=== PATIENT | female | born 1995 | race Caucasian/White ===

== ENCOUNTER 2022-09-26 09:30 | Outpatient (OUT) | payer OTHER, SELFPAY ==
[2022-09-26 11:24] LABS: HCG Quantitative <1 mIU/mL
== END 2022-09-26 09:31 | disposition home or self-care (01) ==
LOC: LAB 09:39
PROVIDERS: Visit Provider Physician Assistant
DX: N92.6 Irregular menstruation, unspecified (principal)
CPT/HCPCS: 36415; 84702

== ENCOUNTER 2022-09-27 08:57 | Outpatient (OUT) | payer OTHER, SELFPAY ==
[2022-09-27 09:42] LABS: HCG Quantitative <1 mIU/mL
== END 2022-09-27 08:58 | disposition home or self-care (01) ==
LOC: LAB 08:57
PROVIDERS: Visit Provider Obstetrics & Gynecology
DX: N92.6 Irregular menstruation, unspecified (principal)
CPT/HCPCS: 36415; 84702

== ENCOUNTER 2023-06-12 15:46 | Outpatient (RCR) | payer SELFPAY ==
[2023-06-12 17:25] LABS: HCG Quantitative <1 mIU/mL
== END 2023-07-05 08:45 | disposition home or self-care (01) ==
LOC: LAB 15:46
PROVIDERS: Visit Provider Obstetrics & Gynecology
DX: N97.0 Female infertility associated with anovulation (principal)
CPT/HCPCS: 36415; 84702

== ENCOUNTER 2023-06-14 10:30 | Outpatient (OUT) | payer SELFPAY ==
[2023-06-14 11:09] LABS: HCG Quantitative <1 mIU/mL
== END 2023-06-14 10:31 | disposition home or self-care (01) ==
LOC: LAB 10:31
PROVIDERS: Visit Provider Obstetrics & Gynecology
DX: N97.0 Female infertility associated with anovulation (principal)
CPT/HCPCS: 36415; 84702

== ENCOUNTER 2023-06-17 16:55 | Emergency (ER) | payer SELFPAY ==
[2023-06-17 17:08] VITALS: BP 141/85; PULSE 74; RESP 18; TEMP 36.8; O2SAT 97; BMI 25.7
--- OUTSIDE RECORDS SUMMARY | 2023-06-17 17:31 | XMS_ITS | CCD ---
Author Name Unknown Address [address] [place] [id number] Organization [facility] Care Team Providers Care Amusement [employer] Entertainer Name Role Phone TOAN ARTIS I Attending Unavailable Telma Rodriguez Primary Care Unavailable CARYN, DR ADAM Attending Unavailable [facility], DR NIEVES Primary Care Unavailable CARYN, DR ADAM Admitting Unavailable CARYN, DR ADAM Consulting Unavailable [facility], DR NIEV[facility] Primary Care Unavailable CARYN, DR ADAM Admitting Unavailable CARYN, DR ADAM Attending Unavailable Jair ACOSTA Attending Unavailable Jair ACOSTA Admitting Unavailable Fernanda Pantoja Unavailable Allergies Allergy Classification Reported Allergen(s) Allergy Type Date of Onset Reaction(s) Facility (1 source) No Known Medication Allergies; Translations: [No Known Medication Allergies] Propensity to adverse reactions (disorder) [facility] Repository Medications Current Medications Medication Drug Class(es) Dates Sig (Normalized) Sig (Original) fluticasone propionate 0.05 mg/actuat metered dose nasal spray (1 source) Corticosteroid Start: 3 take 1 spray(s) nasal route once daily Fluticasone Propionate 50 MCG/ACT 1 spray in each nostril Nasally Once a day for 30 day(s) Jun, Active methylPREDNISolone 4 mg oral tablet (1 source) Corticosteroid Start: 3 methylPREDNISolone 4 MG as directed Orally Once a day for 6 days Jun, Active Problems Active Problems Problem Classification Problem Date Documented Date Episodic/Chronic External cause codes: Natural/environment (1 source) Bitten or stung by nonvenomous insect and other nonvenomous arthropods, initial encounter; Translations: [Bit/stung by nonvenom insect oth nonvenom arthropods, init] Onset: 12-05-2017 Immunizations and screening for infectious disease (1 source) Encounter for screening for human papillomavirus (HPV); Translations: [ENC SCREENING HUMAN PAPILLOMAVIRUS] Onset: 11-19-2021 Episodic Other screening for suspected conditions (not mental disorders or infectious disease) (4 sources) Encounter for screening for malignant neoplasm of cervix; Translations: [ENC SCREENING MALIG NEOPLASM CERV] Onset: 11-18-2021 Episodic Other upper respiratory disease (1 source) Sinusitis; Translations: [Allergic rhinitis, unspecified] Chronic Other upper respiratory disease (1 source) Allergic rhinitis, unspecified Chronic Other upper respiratory infections (1 source) Acute pharyngitis, unspecified Episodic Skin and subcutaneous tissue infections (1 source) Periorbital cellulitis; Translations: [Periorbital cellulitis] Onset: 12-05-2017 Past or Other Problems Problem Classification Problem Date Documented Da te Episodic/Chronic Allergic reactions (1 source) Allergy, unspecified, initial encounter; Translations: [Allergy, unspecified, initial encounter] Onset: 12-05-2017 Episodic Other eye disorders (1 source) Edema of left lower eyelid; Translations: [Edema of left lower eyelid] Onset: 12-05-2017 Episodic Other eye disorders (1 source) Edema of left upper eyelid; Translations: [Edema of left upper eyelid] Onset: 12-05-2017 Episodic Other skin disorders (1 source) Rash and other nonspecific skin eruption; Translations: [Rash and other nonspecific skin eruption] Onset: 12-05-2017 Episodic Results Test Name Value Interpretation Reference Range Facility [facility] 06-16-2022 S. pyogenes Org specific cx Ql (Throat) Negative [facility] Other [facility] Other Operative Reporton 2 Operative Report SURGERY DATE: 01/19/2022 [employer]: LUDIVINA PREOPERATIVE DIAGNOSIS: Pelvic pain, suspected ectopic POSTOPERATIVE DIAGNOSIS: Pelvic pain, suspected ectopic , including right ectopic OPERATION: Diagnostic laparoscopy with right salpingectomy with evacuation of hemoperitoneum BLOOD LOSS: 5 mL with hemoperitoneum of 300 mL FINDINGS: Right ectopic with 300 mL hemoperitoneum, otherwise normal appearing ovaries, left tube and uterus SPECIMEN: Right tube ANESTHESIA: General PROCEDURE: The patient was taken back to the Operating Room where she was given general anesthesia without difficulty. She was prepped and draped in normal sterile fashion after being placed in dorsal lithotomy position. A wet sponge stick was placed into the patient's vagina. The attention was then turned to the patient's umbical area where a small infraumbilical incision was made. This was carried down to underlying rectus fascia using mesh retractors. The fascia was then identified and grasped with Dennis clamps. These Dennis clamps were then tented up. A knife was then used to excise the fascia. Two 0 Vicryl GI needles were placed on each side of the fascial opening laterally. The peritoneum was identified, entered bluntly and a 10 mm blunt port was then placed. Visualization of the pelvic cavity was then performed using the hysteroscope that was just placed through the port. Two additional right and left lateral 5 mm ports were then placed under direct visualization. The patient's abdomen was insufflated using approximately four liters of carbon dioxide gas. Normal appearing left tube and ovary as well as uterus and normal appearing right ovary were identified. The right ectopic was seen. This was then grasped with forceps and removed using a LigaSure which was transected and ligated. The ectopic was then removed from the patient's abdomen. The Andreea was used to remove approximately 300 mL of blood. The patient's abdomen was copiously irrigated and blood is then again removed. All instruments were removed from the patient's abdomen after the patient was de-insufflated of the carbon dioxide gas. The fascia was then closed using the 0 Vicryl on a GI needle. Then the patient's infraumbilical and left lateral skin incision was closed using 4-0 Vicryl subcuticularly. The patient tolerated the procedure well. Sponge, laparotomy and needle counts were correct x2. The patient taken to Recovery Room in stable condition. Ronald Angela Dictated: 01/26/2022 [id number] Transcribed: 01/27/2022 [facility] Comment on above: Result Comment: Elec tronically Signed By: Jair ACOSTA DO\.jay\Date and Time Signed: 03/02/22 16:01 EST Coding Summary.on 01-27-2022 Coding Summary. [id number] Gh 0bWw+PGhlYWQ+ZR5JNBTxG 42zpLKxfS7SA7gPOC4JIVI IVMAKHG6QXM7uiZT4YRnvB 2VybiAv FvagaCArVO70EFl3GJZ2iK yzDKbqoH7paFPiW1i2NzHs FT24xI75LOkqKTCnDzL4Ar ZpbjsgbWFy D2pmTzUtsFJyZxv+PHRhYm xlIHdpZHRoPScxMDAlJyBz mTexCG7nLn6uWDCkQVNewG xhcHNlOiBj q8efVPOgARrdBC0oeTcoO4 EviBQ3QFGgh4u2Hn64mLG+ MBQqDME4xSbeTZyhj756Nc Crw5spWGW3 yDVnQEkmSAJ7C03at5L3DM BvCCFrGVN7xGR0sR5fhJuk jiwzV6RbsOTlEnR8MPO9sP VqkX3woPuv eleflR5pUgi+D68BVF6SUW FASI4EIys2P0PuKneajBU+ LL32AVRySZ04xOHrfCOco8 lovEg3EkUm FCUqHGU7mTiyKDfun0PySP KlI64saWZki2F0YIHgfWom nIAhIpAeePI1uI6rRWzvup vgp0vtwtga Faasm8onzs35aM88V51dWT cqYZQjDIG1VTMtYPMhxBbt gi6yfY7uNs2+NUbqp8quz8 egcRn6DzAw OWQrcdBqkVubCMV0v3TrPy 84P5SjrCbzv5CrRfj5gr39 eQYoh1W4tCD2TZihAZRsjG 9xZTriHfV0 WTNvPcEvaM28iFSzFHpkKm 5yuJgcyRgfNM6dAQJiugdy FZSfzZ2zLSDrmHCiaBihNU 4wNTBpbjtm c055FxJxZRW9UUPocUAgY6 FibQ1xQjEuUEIuRHJlC8Xf gCCiIQgbP545DVymMuI6HJ LjbtAuY5Ce UVIzhGctYsS5x4U5Ix1Oi9 FyoktuEFM6TSbkRFLpNtN7 XxNsEdS3F0YfQro9MBTlgM kuLR9hX1Ad PXVclgafcbyghZK0ULJrEN IodJ71dPOfDEoaCr2yb6I3 w152QASeASYbpX56Cr1pqU ogMTBwdCBU pF0smgxnb7freljbUaYpCF NyWJu0UDi5IUFfpAqrLoKd NZQ7ArQ9KJI3qKSqhG0qvO dchtgewO8u Oyc+M76lbS0eLXX0JWJ6rx soWCYqiePrMF02IU98G6Wa PjwvdGFibGU+PGRpdiBzdH izWE6dYuQa n7kwp9PpKRjdI6NuLJBwDM zqZbr1MFAqMWA3xAL8kI6n ZXBcIKwba4L5lBB3Q9Ctms Rvpm4vl3ew JUXrSZxhG31axOUuz9P9BU ZerVZ2MNOtaEulUgLweD86 Oyc+MEXgfKwgj1SkXdsec0 kat5ehdWs6 WyMpFYOydxHihTffHLW9j6 RoUj61E65tZSxcGXIlTOSz HUWzVHAdzHoczv4hgT7cSs 8+PGNvbCB3 bHA6cH4dGHDkRxA3PLwmI5 51WdVjwDEoKirby0ttx6ok yHr0JmWzIKXbznBguFgbGA S5k1SeNd19 R52aNNlwWDUuNBUsEIOrVG EynAwxuh0qvS0qPh1+PC9j n3lxlb98vH00uPS+PHRkIH E1pFyyIHld ANYndO1mYLqyWiX2OBGoXf VcvS41bOPwWWrvRl2wnSbo jAzaNO7zORQqkwjeg189Gp Wxk9vgFGJx tDCqPMsdRSI9B09qg6L4RK ZdHEXnEQH5dFK1jG0tcZfd bjogbGVmdDsgdmVydGljYW weBXvsU531 IHRvcDsnPlBhdGllbnQgTm BzMUr2V5UeMpn1JZQotHst RI3zkJAeYBmbJd0coBhpwF zfPU3nSLKd gfkgq858JpYtu9fdZRYzpE UbHIykORK0D48vf5I0QEJa WWVqFEN6oMU3oW4dtRtgkj ogbGVmdDsg pkOblMkdDDdhSSnmE633TJ RvcDsnPkJpcnRoIERhdGU6 GV25WK21wUNpe3V5oOA0R2 BhZGRpbmct pemrgQV4KGBfLIQuoO25Vw 3rhXgeWw3uPJQdVZB7CGWo yTNmN1AcwW5hUgNxHRPbLJ IkJ0GreRIz UJgaS080QHvmTsC5DCIfsy TsN0XaWELdsIxuGfT7f8I1 Ze2YZ5Q8EB89YZ31nESge8 H0iRA9M3Fh PQMmhtkxqkihfBW8KQVrEX DbqV61Xu8qtSvpSm6aZPDc IXU7NKSstYIqI5BwtA1bMs AjMDAwMDAw R7FbqRPtBNyoU386TLcrOx V6ZVTkptZnF7QvOWDjaKsz YuQ6b8J8Yy6TRBv2JV11UI 17aBDio8Q5 aPO1X0VeUZIfwdkykvtvsA J7ZXCxSQWddO71Cg8fqHsn Nx5mSNWkDDU1CNNoxSKjV9 SefU6xOvBr JGJqTWTvW3UvzKMdFQqeW8 63FQthMeJ8JDDzccJtD6Rf ONYwqPmuIoA3f8W7Db4EXR SbRW76RXP7 dIK9CJ92NQ07W4BwNavfmK FibGU+PHRhYmxlIHdpZHRo MMtfBYCsPtDwsRhbFQ7xOn 9yZGVyLWNv nSiriBOyMbCcg6yiDURhQI dnUV1zbRqlY1PvbBH4HZNt f4w2Aa63T91bN8EnvFK+PG JikTE5wOM8 aW6jTeAgJkC6MSekD998Iz DidTYpJnnzw8lic6wecLv3 RxD8XNGsmeAwaYqkOHQ8v6 BoSr46B58a IHdpZHRoPSIxNSUiIHZhbG cqqv5xcO1uJz0+PGNvbCB3 gJL3cQ9uZhWqUfT2EDjxU5 49InRvcCIv Wvqid1oqu6qzxKp6DmGkVM ZwksJbpXrkJXQ8w1EoWj38 L3BmaOsyj1CdMxi3el63yF Fex9Y1aBS8 G2FcMQKaenqneQKdjMjyEW 3dWVUsssznKVOdsZ0aWUWx U8o3XjOjRdJ1EUvdV9Jbnt T3PCMzuYFf ZNmyYAV0H00mp4N1MUFtLY YnKTV4dEE8kL9yqNvkvtfo bGVmdDsgdmVydGljYWwtYW lcY822NIQm wFrzZZBclS4tPPRlsMDnzA mxWM3sCWNyryalJtWOVQ7O RUUKNPQIMtGJMQ47QY52yY Yvc3H5cRH5 H6VnYMYhqmkbrrivoSM4KW PpYZNyhK14qEAdJXtkPg8z e6R0m722BFQsDOXmmK70Da 9udDogMTBw uZVHyX0ipaqta7nudfgdFg LzCGLtVZr0XIp4LRQkiFuc NrHnRNI8UxV7YLT3qKSgtJ 1hbGlnbjog eZ5tMnu+FQIaNJbgRNe9UH wvdGQ+UKLhLHP4vTojBQjr YRJbqE7nFDKrM8u3VdXyRl E0IOlxY0Xm LHMsgteuQy81sW0jStJgPk M8ZPytW5FncvE1GWEldZWs XKloHFX9Q29ww9U1YFVmTP HnOOL6fEP2 fU5jkRmvksridFWsfZfcdu CiqLohKKvqYAmfY477OHFv eQanPrV0DHwsMNNhGJ68ZD 80xTEwr8B6 pNL8S2CjPZPvjcqsgriudO Z2LJQcBNTmjG09mUHjHOkb Hi5np2J0a175EZObCTLskN 06Mk9jsIjt HLIteYOYoZ0aljito3lwnn kbWwWnATKcITt9UAr8HZNg xFshGkGdCOD3KpV1GHO3aB HruT7hbHcj nzsoaE5aXlx+RmVtYWxlPC 30RQ79fONbo2K0aCU8Z7Ci IGZydkienotggAG0EKTqGS HhiW68hWEy VJbwQo9ul7A6m484DMBvBZ JzxG00If6heKvlDYVqhQJV kQ9xcseuw6qjglqcAaCpBH EqJOp8SJn4 AQRhkRsyMqPpJFQ2VjC1RE A2kMCrlT3txAedgzaksW9q Oyc+TM6unmrbzfM0OY40KE 59F0QiApmv dGFibGU+PHRhYmxlIHdpZH VdPYtzTHLmJaIckKrbKS3d Nx4jDHXcLUZgpOocmCQkLy Xqu1suHISm FAfgYX0ywGfsW9XxmHN1ZO Gyv3m1Qs39P08hD4DzgXI+ SCRqrWD5hVJ3fF9bRbReIg Z9MHfyZ612 SoDzwVHmEpoty4jgd2bhdA d8PbJxWDFkctIwvVpyCTZ4 y7BuBd77Y56nSKsxBYOpSZ IyMCUiIHZh oLcdmo4loF2jZw0+PGNvbC R7iFW1tZ2pAiEkOdX2KRac A714HjUbuRYmApeqC19xN8 JvdXA+PHRy Cja2OSHqcZcoQM0wnWZgJL hvIj3gUFL1HhAeLpRpOXkh P0AsYNUolnuumtyqgZH2CU HlPXViiW68 Wt3uoVkyQm5nBHUrQXJ1RC BqrFWgS5ZiqP4zAyNqOGUg ECChQ6VufTNoFQswT342ZH vgDvD5TYYh zmPeP6LhLLZtuNwdUfO5x0 W1Vx1SsDuraIAiCA0iTnHp CQn0P2XxDma0SSGpbRzxOK 0ncGFkZGlu Vi6siHpuqCqkAX7jDOVhie gip395DcYhc5hcPHKacGQr XLarNMD9E40hf6E3FKFuPP VmIWH4qXY0 jQ6xzRawgkyabHHocMonpz DucYchLIuaRRamX780OODv kTxlJaSWWtg7I1SxRmi5VG KsiVceJY3d tNYvEMbiPw7rdKkzgTdiFQ 5yUJGoiesxj618PkLns7yi RTXerYIdOGyrZQH3A61my5 J2QJDqBEYt ARI1wVG0rQ4nyVoivtbvnW VmdDsgdmVydGljYWwtYWxp Z021LAAynMrxOb7IGjr8F3 AuYat4WXXi sWnzQR3niFIpAMkxJv5siY vnaAqxUN6qATIrkaqbx900 YnXtj2oaNXWipGTbOUdcWK M4N55vr9N0 JLBaCEAeSBN9fRG5cZ4xdR lnbjogbGVmdDsgdmVydGlj AJpeGWhiK820ZIPwuBoqLc BheWVyOjwv dGQ+HJ64gc24Y0XbWdjsDv b7TWFeDUP9vNY3mJ6kUKQo RYvml6L9oKJ2R0RtpoHjmb 5rx7gaTCIs ZTog (more content not included)... Normal [facility] IntraOperative Documentson 1 IntraOperative Documents [id number]. 00CD:127 Normal [facility] Main OR Intraoperative Recor don 01-21-2022 Main OR Intraoperative Record IntraOp Document Type FT Summary Primary Physician: Jair ACOSTA DO Finalized Date/Time: 01/21/22 14:55:38 Pt. Name: DACIA RIZZO/Sex: 1995 Female Med Rec #: [id number] Physician: Financial #: [id number] Pt. Type: E Room/Bed: [place] [address] Admit/Disch: 01/19/22 10:09:49 - 01/19/22 18:40:18 Institution: Case Times FT Entry 1 Patient Times In Room 01/19/22 15:25:00 Out Room 01/19/22 16:29:00 Procedure Times Start 01/19/22 15:43:00 Stop 01/19/22 16:31:00 Anesthesia Times Start 01/19/22 15:25:00 Stop 01/19/22 16:29:00 Last Modified By: Mick López 01/19/22 16:43:03 General Comments: 01/21/22 Chart opened to review and send charges LRoth CSFA Case Attendance FT Entry 1 Entry 2 Entry 3 Case Attendee Jair ACOSTA DO, DO, Thomas A Sweene, Terry T Role Performed Surgeon - Primary Anesthesiologist of Clinic Office Manager - Primary Record Time In 01/19/22 15:25:00 01/19/22 15:25:00 01/19/22 15:25:00 Time Out 01/19/22 16:29:00 01/19/22 16:29:00 01/19/22 16:29:00 Procedure LAPAROSCOPY LAPAROSCOPY LAPAROSCOPY DIAGNOSTIC(Unknown) DIAGNOSTIC(Unknown) DIAGNOSTIC(Unknown) Comments in orientation Last Modified By: Mick López Terry T Sweene, Terry T 01/19/22 16:43:54 01/19/22 16:43:06 01/19/22 16:43:06 Entry 4 Entry 5 Entry 6 Case Attendee Sen LAMBERT, Stepan Randhawa CST, Maritza Tamayo RN, CNOR, Nazia Fabian Role Performed Clinic Office Manager - Primary Scrub - Primary COMMUNITY RELATIONS ADVISOR Time In 01/19/22 15:25:00 01/19/22 15:25:00 01/19/22 15:25:00 Time Out 01/19/22 16:29:00 01/19/22 16:29:00 01/19/22 16:29:00 Procedure LAPAROSCOPY LAPAROSCOPY LAPAROSCOPY DIAGNOSTIC(Unknown) DIAGNOSTIC(Unknown) DIAGNOSTIC(Unknown) Comments PRECEPTOR Last Modified By: Mick López Terry T Roth CST, Tamika Redmond 01/19/22 16:43:06 01/19/22 16:43:06 01/21/22 14:48:31 General Comments: modified abigail to correct role LR Perioperative Protocols FT Pre-Care Text: Implements protective measures prior to operative or invasive procedure, confirms identity before the operative or invasive procedure, verifies operative procedure, surgical site, and laterality Entry 1 Procedure(s) LAPAROSCOPY Patient Identity Birthday, Blood Band, DIAGNOSTIC(Unknown) Verified (select at ID Band Check, Patient least 2): Participation Consents / H and P Anesthesia Consent, Operative Site N/A Verified HandP, Surgery/Procedure Marking Verified Consent, Transfusion Consent Surgical Site Yes Laterality Verified n/a Verified Procedure Verified Yes Correct Patient Yes Position Verified Availability Equipment Prep Dry Yes Verified (If Applicable) PreOp Antibiotic Yes Time Out Jair ACOSTA DO, Rapp Given Participants , Maribel Paige Terry T, Krupp RN, Edis Lozano CST, Belkis Coello RN, CNOR, Nazia Fabian Time Out Complete 01/19/22 15:43:00 Outcomes Met? Yes Last Modified By: Mick López 01/19/22 16:08:50 Post-Care Text: The patient is free from signs and symptoms of injury caused by extraneous objects Allergy Information FT Pre-Care Text: Verifies allergies Entry 1 Allergies Reviewed? Yes Allergies Reviewed Self/Patient With Outcomes Met? Yes Last Modified By: Mick López 01/19/22 16:07:32 Post-Care Text: The patient received appropriate medication(s) safely administered during the perioperative period Surgical Procedures FT Entry 1 Procedure Description Procedure LAPAROSCOPY DIAGNOSTIC Modifiers Unknown Surgeon Description DIAGNOSTIC LAPAROSCOPY, LEFT SALPINGECTOMY FOR ECTOPIC Primary Procedure Yes Primary Surgeon Jair ACOSTA DO Start 01/19/22 15:43:00 Stop 01/19/22 16:31:00 Anesthesia Type General Surgical Service Obstetric Gynecology Wound Class 2 - Clean-Contaminated Last Modified By: Mick López 01/19/22 16:44:23 General Case Data FT Pre-Care Text: Classifies surgical wound, implements aseptic technique, initiates traffic control Entry 1 Case Information OR OR 2 FT Case Level Level 3 Wound Class 2 - Clean-Contaminated Specialty Obstetric Gynecology ASA Class 2E Preop Diagnosis ECTOPIC Postop Same As Preop Yes Postop Diagnosis ECTOPIC Outcomes Met? Yes Last Modified By: Mick López 01/19/22 16:10:07 Post-Care Text: The patient is free from signs and symptoms of infection Skin Assessment (Pre Procedure) FT Pre-Care Text: Implements protective measures to prevent skin/ tissue injury due to thermal or mechanical sources Evaluates for signs and symptoms of physical injury to skin and tissue Entry 1 Skin Integrity Intact, Falkner, Warm, and Skin Abnormality No Dry Outcomes Met? Yes Last Modified By: Mick López 01/19/22 16:10:18 Post-Care Text: The patient is free from signs and symptoms of injury caused by extraneous objects Patient Positioning FT Pre-Care Text: Identifies physical alterations that require additional precautions for p (more content not included)... Normal [facility] Main OR PACU I Recordon 01-04 Main OR PACU I Record PACU Phase I Document Type FT Summary Primary Physician: Jair ACOSTA DO Finalized Date/Time: 01/21/22 08:54:39 Pt. Name: DACIA RIZZO/Sex: 1995 Female Med Rec #: [id number] Physician: Financial #: [id number] Pt. Type: E Room/Bed: Admit/Disch: 01/19/22 10:09:49 - Institution: Case Times PACU I FT Pre-Care Text: Identifies barriers to communication and implements measures to provide psychological support Develops individualized plan of care, and ensures continuity of care Maintains patient's dignity and privacy, and maintains patient confidentiality Identifies and reports philosophical, cultural, and spiritual beliefs and values Identifies individual values and wishes concerning care Implements aseptic technique, and administers prescribed antibiotic therapy and immunizing agents as ordered Evaluates postoperative tissue perfusion Implements thermoregulation measures, and monitors body temperature Evaluates postoperative respiratory status Evaluates postoperative cardiac status Evaluates postoperative neurological status Assesses pain control, collaborated in initiating patient-controlled analgesia and implements alternative methods of pain control Verifies allergies, administers prescribed medications and solutions, evaluates response to medications Entry 1 In PACU I 01/19/22 16:29:00 Discharge from PACU 01/19/22 16:59:00 I Outcomes Met? Yes Last Modified By: Paola Pimentel RN 01/19/22 17:23:31 Post-Care Text: The patient demonstrates knowledge of the expected response to the operative or invasive procedure The patient's care is consistent with the individualized perioperative plan of care The patient's right to privacy is maintained The patient's value system, lifestyle, ethnicity, and culture are considered, respected, and incorporated into the perioperative plan of care The patient participates in decisions affecting his or her perioperative plan of care The patient is free from signs and symptoms of infection The patient has wound/tissue perfusion consistent with or improved from baseline levels established preoperatively The patient is at or returning to normothermia at the conclusion of the immediate postoperative period The patient's respiratory function is consistent with or improved from baseline levels established preoperatively The patient's cardiovascular status is consistent with or improved from baseline levels established preoperatively The patient's cardiovascular status is consistent with or improved from baseline levels established preoperatively The patient demonstrates and/or reports adequate pain control throughout the perioperative period The patient received appropriate medication(s), safely administered during the perioperative period Acuity Level PACU I FT Entry 1 Start Time 01/19/22 16:29:00 Stop Time 01/19/22 16:59:00 Acuity Level Acuity Level I Last Modified By: Paola Pimentel RN 01/19/22 17:31:29 Finalized By: Paola Pimentel RN Document Signatures Signed By: Paola Pimentel RN 01/19/22 17:31 Paola Pimentel RN 01/21/22 08:54 Normal [facility] Main OR PACU II Recordon Main OR PACU II Record PACU Phase II Document Type FT Summary Primary Physician: Jair ACOSTA DO Finalized Date/Time: 01/21/22 08:57:56 Pt. Name: MONISHA RIZZOHema Lyles./Sex: 1995 Female Med Rec #: [id number] Physician: Financial #: [id number] Pt. Type: E Room/Bed: Admit/Disch: 01/19/22 10:09:49 - Institution: Case Times PACU II FT Pre-Care Text: Identifies barriers to communication and implements measures to provide psychological support and determines knowledge level Develops individualized plan of care, and ensures continuity of care Maintains patient's dignity and privacy, and maintains patient confidentiality Identifies and reports philosophical, cultural, and spiritual beliefs and values Identifies individual values and wishes concerning care administers prescribed antibiotic therapy and immunizing agents as ordered, Evaluates postoperative tissue perfusion Implements thermoregulation measures, and monitors body temperature Evaluates postoperative respiratory status Evaluates postoperative cardiac status Evaluates postoperative neurological status Assesses pain control, collaborated in initiating patient-controlled analgesia and implements alternative methods of pain control Verifies allergies, administers prescribed medications and solutions, evaluates response to medications Entry 1 In PACU II 01/19/22 16:59:00 Discharge from PACU 01/19/22 18:40:00 II Outcomes Met? Yes Last Modified By: Paola Pimentel RN 01/19/22 19:04:26 Post-Care Text: The patient demonstrates knowledge of the expected response to the operative or invasive procedure The patient's care is consistent with the individualized perioperative plan of care The patient's right to privacy is maintained The patient's value system, lifestyle, ethnicity, and culture are considered, respected, and incorporated into the perioperative plan of care The patient participates in decisions affecting his or her perioperative plan of care. The patient is free from signs and symptoms of infection The patient has wound/tissue perfusion consistent with or improved from baseline levels established preoperatively The patient is at or returning to normothermia at the conclusion of the immediate postoperative period The patient's respiratory function is consistent with or improved from baseline levels established preoperatively The patient's cardiovascular status is consistent with or improved from baseline levels established preoperatively The patient's neurological status is consistent with or improved from baseline levels established preoperatively The patient demonstrates and/or reports adequate pain control throughout the perioperative period The patient received appropriate medication(s), safely administered during the perioperative period Finalized By: Paola Pimentel RN Document Signatures Signed By: Paola Pimentel RN 01/19/22 19:04 Paola Pimentel RN 01/21/22 08:57 Normal [facility] Consent for Anesthesiaon Consent for Anesthesia [id number]#[id number] 0CD:127 Normal [facility] Consent for Procedure/Surger yon 01-20-2022 Consent for Procedure/Surgery [id number] 0CD:127 [facility] Discharge Instructionson Discharge Instructions [id number]#[id number] 0CD:127 [facility] ED Note-Physicianon 01-21-20 22 ED Note-Physician Basic Information Time Seen: Carmella Barlow M.D. 01/19/2022 10:20 Chief Complaint is around 4-5 weeks and started this am with abdominal pain History of Present Illness The patient is 26-year-old female 4 to 5 weeks (G2, P1, A0) who presented to the emergency room with abdominal pain. The patient states that she is 4 to 5 weeks and this morning she started to have pain she points to the left lower pelvic region slightly suprapubic. The patient states she had minimal creamy brown discharge last night. She denies any vaginal bleeding. She denies any burning with urination. Reports mild nausea denies any vomiting. Denies any fever, denies any chills. The patient denies any other associated symptoms. Review of Systems Additional ROS info: Except as noted in the above Review of Systems and in the History of Present Illness all other systems have been reviewed and are negative or noncontributory. Physical Exam Vitals & Measurements T: 36.9 ?C(Oral) HR: 93(Monitored) RR: 18 BP: 106/66 SpO2: 99% HT: 160 cm WT: 60 kg BMI: 23.44 General: alert, mild distress Skin: warm, dry Head: no trauma, normocephalic Neck: Trachea midline Eye: normal conjunctiva, sclera clear Cardiovascular: regular rate and rhythm Respiratory: Lungs CTA, respirations non labored, breath sounds equal Gastrointestinal: soft, non distended, moderate tenderness in the left lower quadrant and slightly mid pelvic, no guarding, normal bowel sounds Extremities: no deformity, no trauma Neurological: Alert and oriented, speech normal, no focal neuro deficits Psychiatric: cooperative, affect appropriate for age, Medical Decision Making The patient presented with left lower quadrant abdominal pain. She is 4 to 5 weeks . Her hCG quant is 1185. The ultrasound is concerning for ectopic . The patient was given morphine for pain and her pain improved. The case is discussed with Dr. Acosta who came and took the patient to the operating room. Assessment/Plan 1. Ectopic , tubal (O00.109: Unspecified tubal without intrauterine ) Orders: morphine, 4 mg = 2 mL, Injection, IV Push, Once, Stop date 01/19/22 11:40:00 EDT, STAT, Start date 01/19/22 11:40:00 EDT, 01/19/22 11:40:00 EDT Sodium Chloride 0.9% intravenous solution, Soln-IV, Misc, Once, Stop date 01/19/22 13:22:59 EDT, Physician Stop, 01/19/22 13:22:59 EDT Sodium Chloride 0.9% intravenous solution, 1,000 mL, Soln-IV, IV, Once, Stop date 01/19/22 13:05:00 EDT, STAT, Start date 01/19/22 13:05:00 EDT, Infuse over 61, minute(s) ABO/Rh Automated Diff Basic Metabolic Panel Beta hCG Quantitative CBC w/ Auto Diff eGFR Extra Blue Tube Extra SST Tube Saline Lock Insert UA With Cult Reflex Urinary Catheter Insertion US 1st Trimester US Transvaginal Medications Administered Given morphine 2 mg/mL Inj, 4 mg, IV Push NS 1000 ml Bolus, 1000 mL, IV Disposition Plan Patient Discharge Condition Stable, improved Discharge Disposition Taken to the operating room Discharge Prescription List Prescriptions No active prescription medications Follow-up No qualifying data available Problem List/Past Medical History Ongoing No qualifying data Historical No qualifying data Medications Inpatient No active inpatient medications Home No active home medications Allergies No Known Medication Allergies Social History Alcohol - Denies Alcohol Use, 01/19/2022 Substance Abuse - Denies Substance Abuse, 01/19/2022 Tobacco - Denies Tobacco Use, 01/19/2022 Lab Results WBC: 8 E9/L (01/19/22 10:27:00) RBC: 4.2 E12/L Low (01/19/22 10:27:00) HGB: 12.5 gm/dL (01/19/22 10:27:00) Hct: 37.7 % (01/19/22 10:27:00) MCV: 90.3 fL (01/19/22 10:27:00) MCH: 30 pg (01/19/22 10:27:00) MCHC: 33.2 gm/dL (01/19/22 10:27:00) RDW: 13.1 % (01/19/22 10:27:00) Platelet: 175 E9/L (01/19/22 10:27:00) MPV: 9.2 fL (01/19/22 10:27:00) Neutro Auto: 66.7 % (01/19/22 10:27:00) Lymph Auto: 22.2 % (01/19/22 10:27:00) [place] Auto: 7.7 % (01/19/22 10:27:00) Eos Auto: 2.8 % (01/19/22 10:27:00) Basophil Auto: 0.6 % (01/19/22 10:27:00) Neutro Absolute: 5.3 E9/L (01/19/22 10:27:00) Lymph Absolute: 1.8 E9/L (01/19/22 10:27:00) [place] Absolute: 0.6 E9/L (01/19/22 10:27:00) Eos Absolute: 0.2 E9/L (01/19/22 10:27:00) Basophil Absolute: 0 E9/L (01/19/22 10:27:00) Glucose Lvl: 92 mg/dL (01/19/22 10:27:00) BUN: 13 mg/dL (01/19/22 10:27:00) Creatinine: 0.8 mg/dL (01/19/22 10:27:00) eGFR: >60 (01/19/22 10:27:00) eGFR AA: >60 (01/19/22 10:27:00) BUN/Creat Ratio: 16 (01/19/22 10:27:00) Sodium Lvl: 136 mmol/L (01/19/22 10:27:00) Potassium Lvl: 3.8 mmol/L (01/19/22 10:27:00) Chloride: 103 mmol/L (01/19/22 10:27:00) CO2: 22 mmol/L (01/19/22 10:27:00) AGAP: 15 mEq/L (01/19/22 10:27:00) Calcium Lvl: 9.2 mg/dL (01/19/22 10:27:00) Beta hCG Qnt: 1185 mIU/mL High (01/19/22 10:27:00) UA Spec Desc: Avril (more content not included)... Normal [facility] Comment on above: Result Comment: Elec tronically Signed By: Cain Cope, Carmella H\.br\Date and Time Signed: 01/20/22 07:45 EDT IntraOperative Documentson 1 IntraOperative Documents [id number] 0CD:127 [facility] Prescriptions/Work Noteson 1 Prescriptions/Work Notes [id number] 0CD:127 [facility] Progress Note-Physicianon Progress Note-Physician Patient: DACIA RIZZO Age: 26 years Sex: Female : 1995 Associated Diagnoses: None Author: Jimmy Dover DO Postoperative Information Post Operative Note: Post Anesthesia Care Unit. Physical Examination Intake and Output HYDRATION ADEQUATE Vital Signs (last 24 hrs) Last Charted Temp Oral 36.9 DegC (JAN 19 10:15) Heart Rate Peripheral H 105bpm (JAN 19 10:15) Resp Rate 17 br/min (JAN 19 16:50) SBP 107 mmHg (JAN 19 18:35) DBP L 59mmHg (JAN 19 18:35) SpO2 100 % (JAN 19 18:05) Weight 60 kg (JAN 19 10:15) BMI 23.44 (JAN 19 10:15) Pain assessment: Pain Assessment 01/19/2022 18:35 EDT Pain Symptoms Self Report Yes, able to self report Primary Pain Location Abdomen Numeric Pain Scale 2 Numeric Pain Score 2 Verbal Descriptor Pain Scale Mild pain Verbal Descriptor Pain Score 2 01/19/2022 18:05 EDT Pain Symptoms Self Report Yes, able to self report Primary Pain Location Abdomen Numeric Pain Scale 1 Numeric Pain Score 1 Verbal Descriptor Pain Scale Mild pain Verbal Descriptor Pain Score 2 01/19/2022 16:50 EDT Pain Symptoms Self Report No, able to self report Numeric Pain Scale 0 = No pain Numeric Pain Score 0 01/19/2022 16:29 EDT Pain Symptoms Self Report No, able to self report Numeric Pain Scale 0 = No pain 01/19/2022 14:05 EDT Numeric Pain Scale 2 01/19/2022 10:15 EDT Primary Pain Location Abdomen Patient Preferred Pain Tool Numeric rating Numeric Pain Scale 8 Numeric Pain Score 8 . General: No acute distress. HENT: dentition at preop baseline.. Respiratory: Respirations are non-labored. Cardiovascular: stable hemodynamics. Neurologic: interactive. Assessment Anesthetic outcome No anesthetic complications noted. Adequate pain relief. adequate hydration. PONV controlled. Plan Transfer/ Discharge: Patient can be discharged from PACU when criteria met. Condition good. Normal [facility] Comment on above: Result Comment: Elec tronically Signed By: Jimmy Dover DO\Lisabr\Date and Time Signed: 01/20/22 08:54 EDT ABO/Rhon 01-19-2022 ABO/Rh Positive Invalid Interpretation Code [facility] Comment on above: Performed By: #### 2 [id number] ####[facility] [address] [place] [address] Auto Diffon 01-19-2022 Basophils/100 WBC (Bld) 0.6 % Normal 0.0-2.0 [facility] Comment on above: Order Comment: Order Added by Fausto Expert. Performed By: #### 2 138622, [id number], 6164206, [id number] #### [facility] [address] [place] [address] Basophils/Leukocyt es Auto (Bld) [Pure # fraction] 0.0 E9/L Normal 0.0-0.2 [facility] Comment on above: Order Comment: Order Added by Discern Expert. Performed By: #### 2 218565, [id number], 5443426, 2167974 #### [facility] [address] [place] [address] Eosinophils/100 WBC (Bld) 2.8 % Normal 0.0-8.0 [facility] Comment on above: Order Comment: Order Added by Fausto Expert. Performed By: #### 2 200544, [id number], 8599717, 6320818 #### [facility] [address] [place] [address] Eosinophils/Leukoc ytes Auto (Bld) [Pure # fraction] 0.2 E9/L Normal 0.0-0.5 [facility] Comment on above: Order Comment: Order Added by Fausto Expert. Performed By: #### 2 006880, 15600204, 1484066, 4127751 #### [facility] [address] [place] [address] Lymphocytes/100 WBC (Bld) 22.2 % Normal 14.0-50.0 [facility] Comment on above: Order Comment: Order Added by Fausto Expert. Performed By: #### 2 475310, 33273412, 4959753, 3871576 #### [facility] [address] [place] [address] Lymphocytes/Leukoc ytes Auto (Bld) [Pure # fraction] 1.8 E9/L Normal 1.0-4.0 [facility] Comment on above: Order Comment: Order Added by Fausto Expert. Performed By: #### 2 902394, 40956443, 6783173, 1381847 #### [facility] [address] [place] [address] Monocytes/100 WBC (Bld) 7.7 % Normal 4.0-14.0 [facility] Comment on above: Order Comment: Order Added by Discern Expert. Performed By: #### 2 015502, 40421078, 7059151, 6538976 #### [facility] [address] [place] [address] Monocytes/Leukocyt es Auto (Bld) [Pure # fraction] 0.6 E9/L Normal 0.2-1.0 [facility] Comment on above: Order Comment: Order Added by Discern Expert. Performed By: #### 2 722484, [id number], 2452954, 8654840 #### [facility] [address] [place] [address] Neutrophils/100 WBC (Bld) 66.7 % Normal 36.0-75.0 [facility] Comment on above: Order Comment: Order Added by Discern Expert. Performed By: #### 2 357929, 82516650, 4741886, 5716896 #### [facility] [address] [place] [address] Neutrophils/Leukoc ytes Auto (Bld) [Pure # fraction] 5.3 E9/L Normal 2.0-7.5 [facility] Comment on above: Order Comment: Order Added by Discern Expert. Performed By: #### 2 487227, 34290784, 7717442, 3792770 #### [facility] [address] [place] [address] BMPon 01-19-2022 Creatinine [Mass/Vol] 0.8 mg/dL Normal 0.5-1.3 [facility] Comment on above: Performed By: #### 2 543603, 65736007, 9230163, 7836128 ####[facility] [address] [place] [address] Urea nitrogen [Mass/Vol] 13 mg/dL Normal 5-21 [facility] Comment on above: Performed By: #### 2 551143, 57276661, 7465517, 9164418 ####[facility] [address] [facility] [place] [place] [address] Urea nitrogen/Creatinin e [Mass ratio] 16 No Units Normal 10-20 [facility] Comment on above: Performed By: #### 2 623956, 59744738, 6501021, 6816184 ####[facility] [address] [place] [address] Anion gap [Moles/Vol] 15 mmol/L Normal 6-16 [facility] Comment on above: Performed By: #### 2 572035, 84314799, 6267158, 5556926 ####[facility] [address] [place] [address] Calcium [Mass/Vol] 9.2 mg/dL Normal 8.9-11.1 [facility] Comment on above: Performed By: #### 2 277976, 42515458, 4592546, 4982282 ####[facility] [address] [place] [address] Chloride [Moles/Vol] 103 mmol/L Normal 101-111 [facility] Comment on above: Performed By: #### 2 572361, 37628564, 8697707, 1571651 ####[facility] [address] [place] [address] CO2 [Moles/Vol] 22 mmol/L Normal 21-31 [facility] Comment on above: Performed By: #### 2 649666, 64009004, 2143763, 2012725 ####[facility] [address] [place] [address] Glucose [Mass/Vol] 92 mg/dL Normal 55-199 [facility] Comment on above: Result Comment: If t his glucose result represents a fasting glucose, interpretation should refer to the following reference range: 55-99 mg/dL Performed By: #### 2 257100, 42425833, 4072496, 9213144 ####[facility] [address] [place] [address] Potassium [Moles/Vol] 3.8 mmol/L Normal 3.5-5.3 [facility] Comment on above: Performed By: #### 2 142871, 97031391, 3422580, 1948971 ####[facility] [address] [place] [address] Sodium [Moles/Vol] 136 mmol/L Normal 135-145 [facility] Comment on above: Performed By: #### 2 576728, 31671503, 9903085, 2196189 ####[facility] [address] [place] [address] BhCG Quanton 01-19-2022 HCG.beta subunit Qn 1185 m[IU]/mL High 1-3 [facility] Comment on above: Result Comment: GEST ATIONAL AGE HCG RANGE (mIU/mL) NON- <1-3 0.2-1 WEEKS 5-50 1-2 WEEKS 50-500 2-3 WEEKS 100-5,000 3-4 WEEKS 500-10,000 4-5 WEEKS 1,000-50,000 5-6 WEEKS 10,000-100,000 6-8 WEEKS 15,000-200,000 8-12 WEEKS 10,000-100,000 Performed By: #### 2 026627 ####[facility] [address] [place] [address] CBC w/ Auto Diffon Erythrocyte distribution width (RBC) [Ratio] 13.1 % Normal 10.9-14.2 [facility] Comment on above: Performed By: #### 2 668248, 64305840, 7274283, 5916699 #### [facility] [address] [place] [address] Hematocrit (Bld) [Volume fraction] 37.7 % Normal 34.0-46.0 [facility] Comment on above: Performed By: #### 2 523538, 12516519, 0807404, 8272960 #### [facility] [address] [place] [address] Hemoglobin (Bld) [Mass/Vol] 12.5 g/dL Normal 12.0-16.0 [facility] Comment on above: Performed By: #### 2 102898, 01261172, 8914590, 2629399 #### [facility] [address] [place] [address] MCH (RBC) [Entitic mass] 30.0 pg Normal 27.0-34.0 [facility] Comment on above: Performed By: #### 2 057125, 25796907, 3642988, 6345182 #### [facility] [address] [place] [address] MCHC (RBC) [Mass/Vol] 33.2 g/dL Normal 31.4-36.0 [facility] Comment on above: Performed By: #### 2 419005, 44072529, 0352570, 3699597 #### [facility] [address] [place] [address] MCV (RBC) [Entitic vol] 90.3 fL Normal 80.0-100.0 [facility] Comment on above: Performed By: #### 2 189258, 25423056, 5777668, 3255256 #### [facility] [address] [place] [address] Platelet mean volume (Bld) [Entitic vol] 9.2 fL Normal 6.4-10.8 [facility] Comment on above: Performed By: #### 2 794117, 00559224, 2133150, 6240799 #### [facility] [address] [place] [address] Platelets (Bld) [#/Vol] 175.0 E9/L Normal 150.0-500.0 [facility] Comment on above: Performed By: #### 2 940101, 06572612, 2600103, 8719771 #### [facility] [address] [place] [address] RBC (Bld) [#/Vol] 4.2 E12/L Low 4.3-5.9 [facility] Comment on above: Performed By: #### 2 378770, 02436552, 6546212, 0514622 #### [facility] [address] [place] [address] WBC corrected for nucl RBC Auto (Bld) [#/Vol] 8.0 E9/L Normal 4.0-11.0 [facility] Comment on above: Performed By: #### 2 371987, 61479444, 9261671, 5187254 #### [facility] [address] [place] [address] Consent for Treatmenton 01-04 Consent for Treatment [id number] 0CD:127 Normal [facility] ED Note-Nursingon 01-19-2022 ED Note-Nursing pt up to bathroom to obtain urine sample. bright red blood noted when wiping. physician aware Normal [facility] Inpatient Patient Summaryon 01-19-2022 Inpatient Patient Summary [address] [address] [facility] Clinical Discharge Instructions PERSON INFORMATION Name: DACIA RIZZO PHYSICIANS Admitting Physician: Attending Physician: Carmella Barlow M.D. PCP: Linda Raymundo MD Discharge Diagnosis: 1:Ectopic , tubal Comment: PATIENT EDUCATION INFORMATION Instructions: Diagnostic Laparoscopy, Care After; Salpingectomy Medication Leaflets: Follow up: With: Address: When: Jair ACOSTA [facility], [address] [place] [address] , [place] [address] [facility] (1) Comments: follow up in one week MEDICATION LIST Comment: Normal [facility] Main OR Preoperative Recordo n 01-19-2022 Main OR Preoperative Record Holding Area Document Type FT Summary Primary Physician: Jair ACOSTA DO Finalized Date/Time: 01/19/22 16:01:36 Pt. Name: DACIA RIZZO D.O.B./Sex: 1995 Female Med Rec #: [id number] Physician: Financial #: [id number] Pt. Type: E Room/Bed: Admit/Disch: 01/19/22 10:09:49 - Institution: Case Times Holding FT Pre-Care Text: Verifies consent for planned procedure, identifies individual values and wishes concerning care, includes family members in perioperative teaching Secures patient's records' belongings, and valuables, maintains patient's dignity and privacy, and maintains patient confidentiality Entry 1 In Holding 01/19/22 15:10:00 Outcomes Met? Yes Last Modified By: Mick López 01/19/22 15:59:44 Post-Care Text: The patient participates in decisions affecting his or her perioperative plan of care The patient's right to privacy is maintained Surgery Checklist FT Entry 1 Patient Birthday, Blood Band, Procedure Blood Consent, History Identification: ID Band Check, Patient Verification: and Physical, Surgical Participation Consent, With Family, With Patient NPO after Midnight: No Date/Time: 01/19/22 09:00:00 Preop Results Labs, Test Personal Items: Jewelry Reviewed: Complaints of Pain: Yes Pain Comment: abdomen Operative Site n/a Availability Equipment Marking: Verified: Does Patient Smoke No Patient states Yes Comment - Adult mother and spouse postop adult Supervision supervision available Case Cancelled in No Holding Area see comments below for reason Last Modified By: Mick López 01/19/22 16:01:34 Finalized By: Mick López Document Signatures Signed By: Mick López 01/19/22 16:01 Normal [facility] Monitor Recordon 01-19-2022 Monitor Record [id number]. 00CD:127 Normal [facility] Monitor Record [id number]. [id number]:127 Normal [facility] Outpatient Surgery Discharge Instructionon 01-19-2022 Outpatient Surgery Discharge Instruction [address] [address] Patient Discharge Instructions PERSON INFORMATION Name: DACIA RIZZO Date of : 1995 Current Date: 01/19/2022 16:54:36 PHYSICIANS Admitting Physician: Discharge Diagnosis: 1:Ectopic , tubal DACIA RIZZO has been given the following list of follow-up instructions, prescriptions, and patient education materials: PATIENT FOLLOW-UP INFORMATION Diet: Regular Discharge Activity: Arrange for a responsible adult supervision for 24 hours, Expect mild pain, Expect minimal amount of drainage and/or bleeding, Do not lift more than 5 lbs Discharge Restrictions: Do not operate machinery or tools, Do not make important decisions for 24 hours, Do not drink alcoholic beverages for 24 hours Call Your Doctor For: Temperature above 101.5 degrees, Redness, swelling, or pus at operative site, Severe pain at the operative site, Persistent vomiting Additional Instructions: can remove dressing tomorrow after shower, no heavy lifting for one week can drive on Thursday. can expect some oozing from incision and some bruising.. IF UNABLE TO CONTACT YOUR PHYSICIAN AND YOU FEEL IT IS AN EMERGENCY, GO TO THE NEAREST EMERGENCY ROOM OR CALL [address] Ewing DEBORAH, have received the attached patient education materials/instructions and have verbalized understanding: May we do a follow up call? Yes No I was present when discharge instructions were given Patient Signature Date Clinican/Nurse Signature ___ Date Follow up: With: Address: When: Jair ACOSTA [address] , [place] [address] Business (1) Comments: follow up in one week Pharmacy Information: You may receive a survey from [facility] asking you to rate your care experience. Your feedback is important and will help us understand what we do well and how we can improve the quality of care we provide to you, your loved ones and our community. It?s an honor to serve you. Thank you for choosing [facility] HERE ARE THE MEDICATION CHANGES THAT OCCURRED DURING YOUR HOSPITAL STAY PATIENT EDUCATION INFORMATION Instructions: Diagnostic Laparoscopy, Care After This sheet gives you information about how to care for yourself after your procedure. Your health care provider may also give you more specific instructions. If you have problems or questions, contact your health care provider. What can I expect after the procedure? After the procedure, it is common to have: ? Mild discomfort in the abdomen. ? Sore throat. Women who have laparoscopy with pelvic examination may have mild cramping and fluid coming from the vagina for a few days after the procedure. Follow these instructions at home: Medicines ? Take jorn-lst-fnmjkpa and prescription medicines only as told by your health care provider. ? If you were prescribed an antibiotic medicine, take it as told by your health care provider. Do not stop taking the antibiotic even if you start to feel better. Driving ? Do not drive for 24 hours if you were given a medicine to help you relax (sedative) during your procedure. ? Do not drive or use heavy machinery while taking prescription pain medicine. Bathing ? Do not take baths, swim, or use a hot tub until your health care provider approves. You may take showers. Incision care ? Follow instructions from your health care provider about how to take care of your incisions. Make sure you: ? Wash your hands with soap and water before you change your bandage (dressing). If soap and water are not available, use hand student education specialist. ? Change your dressing as told by your health care provider. ? Leave stitches (sutures), skin glue, or adhesive strips in place. These skin closures may need to stay in place for 2 weeks or longer. If adhesive strip edges start to loosen and curl up, you may trim the loose edges. Do not remove adhesive strips completely unless your health care provider tells you to do that. ? Check your incision areas every day for signs of infection. Check for: ? Redness, swelling, or pain. ? Fluid or blood. ? Warmth. ? Pus or a bad smell. Activity ? Return to your normal activities as told by your health care provider. Ask your health care provider what activities are safe for you. ? Do not lift anything that is heavier than 10 lb (4.5 kg), or the limit that you are told, until your health care provider says that it is safe. General instructions ? To prevent or treat constipation while you are taking prescription pain medicin (more content not included)... Normal [facility] Patient Education - Texton 1 Patient Education - Text Obstetrics and Gynecology Diagnostic Laparoscopy, Care After This sheet gives you information about how to care for yourself after your procedure. Your health care provider may also give you more specific instructions. If you have problems or questions, contact your health care provider. What can I expect after the procedure? After the procedure, it is common to have: ? Mild discomfort in the abdomen. ? Sore throat. Women who have laparoscopy with pelvic examination may have mild cramping and fluid coming from the vagina for a few days after the procedure. Follow these instructions at home: Medicines ? Take qjih-vqy-icremsc and prescription medicines only as told by your health care provider. ? If you were prescribed an antibiotic medicine, take it as told by your health care provider. Do not stop taking the antibiotic even if you start to feel better. Driving ? Do not drive for 24 hours if you were given a medicine to help you relax (sedative) during your procedure. ? Do not drive or use heavy machinery while taking prescription pain medicine. Bathing ? Do not take baths, swim, or use a hot tub until your health care provider approves. You may take showers. Incision care ? Follow instructions from your health care provider about how to take care of your incisions. Make sure you: ? Wash your hands with soap and water before you change your bandage (dressing). If soap and water are not available, use hand student education specialist. ? Change your dressing as told by your health care provider. ? Leave stitches (sutures), skin glue, or adhesive strips in place. These skin closures may need to stay in place for 2 weeks or longer. If adhesive strip edges start to loosen and curl up, you may trim the loose edges. Do not remove adhesive strips completely unless your health care provider tells you to do that. ? Check your incision areas every day for signs of infection. Check for: ? Redness, swelling, or pain. ? Fluid or blood. ? Warmth. ? Pus or a bad smell. Activity ? Return to your normal activities as told by your health care provider. Ask your health care provider what activities are safe for you. ? Do not lift anything that is heavier than 10 lb (4.5 kg), or the limit that you are told, until your health care provider says that it is safe. General instructions ? To prevent or treat constipation while you are taking prescription pain medicine, your health care provider may recommend that you: ? Drink enough fluid to keep your urine pale yellow. ? Take vrof-rhh-flwomqj or prescription medicines. ? Eat foods that are high in fiber, such as fresh fruits and vegetables, whole grains, and beans. ? Limit foods that are high in fat and processed sugars, such as fried and sweet foods. ? Do not use any products that contain nicotine or tobacco, such as cigarettes and e-cigarettes. If you need help quitting, ask your health care provider. ? Keep all follow-up visits as told by your health care provider. This is important. Contact a health care provider if: ? You develop shoulder pain. ? You feel lightheaded or faint. ? You are unable to pass gas or have a bowel movement. ? You feel nauseous or you vomit. ? You develop a rash. ? You have redness, swelling, or pain around any incision. ? You have fluid or blood coming from any incision. ? Any incision feels warm to the touch. ? You have pus or a bad smell coming from any incision. ? You have a fever or chills. Get help right away if: ? You have severe pain. ? You have vomiting that does not go away. ? You have heavy bleeding from the vagina. ? Any incision opens. ? You have trouble breathing. ? You have chest pain. Summary ? After the procedure, it is common to have mild discomfort in the abdomen and a sore throat. ? Check your incision areas every day for signs of infection. ? Return to your normal activities as told by your health care provider. Ask your health care provider what activities are safe for you. This information is not intended to replace advice given to you by your health care provider. Make sure you discuss any questions you have with your health care provider. Document Released: 03/03/2016 Document Revised: 03/05/2018 Document Reviewed: 09/16/2017 [employer] Patient Education ? 2019 [employer]. Salpingectomy Salpingectomy, also called tubectomy, is the surgical removal of one of the fallopian tubes. The fallopian tubes are where eggs travel from the ovaries to the uterus. Removing one fallopian tube does not prevent you from becoming . It also does not cause problems with your menstrual periods. You may need this procedure if you: ? Have a fertilized egg that attaches to the fallopian tube (ectopic ), especially one that causes the tube to burst or tear (rupture). ? Have an infected fallopian tube. ? Have cancer of the fallopian tube or nearby organs (more content not included)... Normal [facility] Progress Note-Physicianon Progress Note-Physician Patient: DACIA RIZZO Age: 26 years Sex: Female : 1995 Associated Diagnoses: None Author: Jimmy Dover DO Preoperative Information Patient and/or family denies any personal or family hx of difficulty/ problems with anesthesia. Has not had anesthesia in the past. Denies [facility] Light meal at 0800 Re-eval prior to induction: Inital eval reviewed: No significant interval change. Anesthesia results Review of Systems Constitutional: Negative except as documented in history of present illness. Cardiovascular: cardiovascular risk assessment performed.. Respiratory: breathing feels at baseline. Immunologic: denies current respiratory illness. Neurologic: A&O. Health Status Allergies: Allergic Reactions (Selected) No Known Medication Allergies, Allergies (1) Active Reaction No Known Medication Allergies None Documented Current medications: (Selected) , No qualifying data available Problem list: No problem items selected or recorded., No qualifying data available Histories Past Medical History: No active or resolved past medical history items have been selected or recorded. Family History: No family history items have been selected or recorded. Procedure history: No active procedure history items have been selected or recorded. Social History Social & Psychosocial Habits Alcohol 01/19/2022 Risk Assessment: Denies Alcohol Use Substance Abuse 01/19/2022 Risk Assessment: Denies Substance Abuse Tobacco 01/19/2022 Risk Assessment: Denies Tobacco Use . Physical Examination Vital Signs 01/19/2022 14:05 EDT Heart Rate Monitored 93 bpm Respiratory Rate 18 br/min Systolic Blood Pressure 106 mmHg Diastolic Blood Pressure 66 mmHg Mean Arterial Pressure, Cuff 79 mmHg SpO2 99 % 01/19/2022 12:24 EDT Heart Rate Monitored 83 bpm 01/19/2022 12:00 EDT Heart Rate Monitored 80 bpm Respiratory Rate 20 br/min Systolic Blood Pressure 86 mmHg LOW Diastolic Blood Pressure 55 mmHg LOW Mean Arterial Pressure, Cuff 65 mmHg SpO2 99 % 01/19/2022 11:30 EDT Heart Rate Monitored 91 bpm Respiratory Rate 18 br/min Systolic Blood Pressure 124 mmHg Diastolic Blood Pressure 77 mmHg Mean Arterial Pressure, Cuff 93 mmHg SpO2 100 % 01/19/2022 11:00 EDT Heart Rate Monitored 101 bpm HI Respiratory Rate 20 br/min Systolic Blood Pressure 116 mmHg Diastolic Blood Pressure 71 mmHg Mean Arterial Pressure, Cuff 86 mmHg SpO2 98 % 01/19/2022 10:30 EDT Heart Rate Monitored 106 bpm HI Respiratory Rate 18 br/min Systolic Blood Pressure 132 mmHg Diastolic Blood Pressure 76 mmHg Mean Arterial Pressure, Cuff 95 mmHg SpO2 100 % 01/19/2022 10:15 EDT Temperature Oral 36.9 DegC Peripheral Pulse Rate 105 bpm HI Respiratory Rate 20 br/min Systolic Blood Pressure 125 mmHg Diastolic Blood Pressure 81 mmHg SpO2 97 % Vital Signs (last 24 hrs) Last Charted Temp Oral 36.9 DegC (JAN 19 10:15) Heart Rate Peripheral H 105bpm (JAN 19 10:15) SBP 106 mmHg (JAN 19 14:05) DBP 66 mmHg (JAN 19 14:05) SpO2 99 % (JAN 19 14:05) Weight 60 kg (JAN 19 10:15) BMI 23.44 (JAN 19 10:15) Measurements from flowsheet : Measurements 01/19/2022 10:15 EDT Height/Length Measured 160 cm Height/Length Dosing 160.0 cm Weight Dosing 60.0 kg Body Mass Index Measured 23.44 kg/m2 Weight Measured 60 kg Pain assessment: Pain Assessment 01/19/2022 14:05 EDT Numeric Pain Scale 2 01/19/2022 10:15 EDT Primary Pain Location Abdomen Patient Preferred Pain Tool Numeric rating Numeric Pain Scale 8 Numeric Pain Score 8 . Airway: Mallampati classification: II (soft palate, fauces, uvula visible). Respiratory: Adequate air exchange.. Cardiovascular: Regular rhythm. Neurologic: alert, conversant, interactive. Review / Management Results review: Lab results 01/19/2022 11:05 EDT UA Spec Desc Clean Catch UA Color Yellow UA Clarity Clear UA Spec Grav >=1.030 UA pH 6.0 UA Protein Negative UA Glucose Negative UA Ketones Negative UA Bili Negative UA Blood Trace UA Nitrite Negative UA Urobilinogen 0.2 EU/dL UA Leuk Est Negative UA RBC 0-3 /HPF UA Squam Epithelial 3-4 /HPF UA WBC 0-5 /HPF UA Bacteria Trace /HPF UA Mucous 2+ 01/19/2022 10:27 EDT WBC 8.0 E9/L RBC 4.2 E12/L LOW HGB 12.5 gm/dL Hct 37.7 % MCV 90.3 fL MCH 30.0 pg MCHC 33.2 gm/dL RDW 13.1 % Platelet 175.0 E9/L MPV 9.2 fL Neutro Auto 66.7 % Lymph Auto 22.2 % [place] Auto 7.7 % Eos Auto 2.8 % Basophil Auto 0.6 % Neutro Absolute 5.3 E9/L Lymph Absolute 1.8 E9/L [place] Absolute 0.6 E9/L Eos Absolute 0.2 E9/L Basophil Absolute 0.0 E9/L Glucose Lvl 92 mg/dL BUN 13 mg/dL Creatinine 0.8 mg/dL eGFR >60 mL/min/1.73 m2 eGFR AA >60 mL/min/1.73 m2 BUN/Creat Ratio 16 Sodium Lvl 136 mmol/L Potassium Lvl 3.8 mmol/L Chloride 103 mmol/L CO2 22 mmol/L AGAP 15 mEq/L Calcium Lvl 9.2 mg/dL Beta hCG Qnt 1,185 mIU/mL HI (more content not included)... Normal [facility] Comment on above: Result Comment: Elec tronically Signed By: Jimmy Dover DO\Date and Time Signed: 01/19/22 15:12 EDT UA With Cult Kellyon 2021 Bilirubin Ql (U) Negative Normal Negative [facility] Comment on above: Performed By: #### 1 [id number] #### [facility] [address] [place] [address] Clarity (U) CLEAR Normal Clear [facility] Comment on above: Performed By: #### 1 [id number] #### [facility] [address] [place] [address] Color (U) YELLOW Normal Yellow [facility] Comment on above: Performed By: #### 1 [id number] #### [facility] [address] [place] [address] Epithelial cells.squamous LM.HPF (Urine sed) [#/Area] 0-2 Normal 0-2 [facility] Comment on above: Performed By: #### 1 [id number] #### [facility] [address] [place] [address] Glucose Test strip (U) [Mass/Vol] Negative Normal Negative [facility] Comment on above: Performed By: #### 1 [id number] #### [facility] [address] [place] [address] Hemoglobin Ql (U) 1+ Abnormal Negative [facility] Comment on above: Performed By: #### 1 [id number] #### [facility] [address] [place] [address] Ketones (U) [Mass/Vol] 2+ Abnormal Negative [facility] Comment on above: Performed By: #### 1 [id number] #### [facility] [address] [place] [address] [place].plasma/Lit hium.RBC (Bld) [Mass ratio] 4-20 Normal 0-3 [facility] Comment on above: Performed By: #### 1 [id number] #### [facility] [address] [place] [address] Nitrite Ql (U) Negative Normal Negative [facility] Comment on above: Performed By: #### 1 [id number] #### [facility] [address] [place] [address] pH (U) 6.0 [pH] Invalid Interpretation Code 5.0-9.0 [facility] Comment on above: Performed By: #### 1 [id number] #### [facility] [address] [place] [address] Protein (U) [Mass/Vol] Negative Normal Negative [facility] Comment on above: Performed By: #### 1 [id number] #### [facility] [address] [place] [address] Specific gravity (U) [Rel density] 1.010 Invalid Interpretation Code 1.005-1.030 [facility] Comment on above: Performed By: #### 1 [id number] #### [facility] [address] [place] [address] Type of Urine collection method Mata Normal [facility] Comment on above: Performed By: #### 1 [id number] #### [facility] [address] [place] [address] Urobilinogen Qn (U) 0.2 {Lala'U}/dL Normal 0.0-1.0 [facility] Comment on above: Performed By: #### 1 [id number] #### [facility] [address] [place] [address] WBC Auto Ql (U) Negative Normal Negative [facility] Comment on above: Performed By: #### 1 [id number] #### [facility] [address] [place] [address] WBC LM.HPF (Urine sed) [#/Area] 0-5 Normal 0-5 [facility] Comment on above: Performed By: #### 1 [id number] #### [facility] [address] [place] [address] Bacteria LM Ql (Urine sed) TRACE Normal Trace [facility] Comment on above: Performed By: #### 1 [id number] ####[facility] [address] [place] [address] Bilirubin Ql (U) Negative Normal Negative [facility] Comment on above: Performed By: #### 1 [id number] ####[facility] [address] [place] [address] Clarity (U) CLEAR Normal Clear [facility] Comment on above: Performed By: #### 1 [id number] ####[address] [address] Color (U) YELLOW Normal Yellow [facility] Comment on above: Performed By: #### 1 [id number] ####[address] [address] Epithelial cells.squamous LM.HPF (Urine sed) [#/Area] 3-4 Normal 0-2 [facility] Comment on above: Performed By: #### 1 [id number] ####[facility] [address] [place] [address] Glucose Test strip (U) [Mass/Vol] Negative Normal Negative [facility] Comment on above: Performed By: #### 1 [id number] ####[facility] [address] [place] [address] Hemoglobin Ql (U) TRACE Abnormal Negative [facility] Comment on above: Performed By: #### 1 [id number] ####[facility] [address] [place] [address] Ketones (U) [Mass/Vol] Negative Normal Negative [facility] Comment on above: Performed By: #### 1 [id number] ####[facility] [address] [place] [address] [place].plasma/Lit hium.RBC (Bld) [Mass ratio] 0-3 Normal 0-3 [facility] Comment on above: Performed By: #### 1 [id number] ####[facility] [address] [place] [address] Mucus Ql (Urine sed) 2+ Normal [facility] Comment on above: Performed By: #### 1 [id number] ####[address] [address] Nitrite Ql (U) Negative Normal Negative [facility] Comment on above: Performed By: #### 1 [id number] ####[address] [address] pH (U) 6.0 [pH] Invalid Interpretation Code 5.0-9.0 [facility] Comment on above: Performed By: #### 1 [id number] ####[place] [id number] Protein (U) [Mass/Vol] Negative Normal Negative [facility] Comment on above: Performed By: #### 1 [id number] ####[address] [address] Specific gravity (U) [Rel density] >=1.030 Invalid Interpretation Code 1.005-1.030 [facility] Comment on above: Performed By: #### 1 [id number] ####[place] [id number] Type of Urine collection method Clean Catch Normal [facility] Comment on above: Performed By: #### 1 [id number] ####[address] [address] Urobilinogen Qn (U) 0.2 {Lala'U}/dL Normal 0.0-1.0 [facility] Comment on above: Performed By: #### 1 [id number] ####[address] [address] WBC Auto Ql (U) Negative Normal Negative [facility] Comment on above: Performed By: #### 1 [id number] ####[address] [address] WBC LM.HPF (Urine sed) [#/Area] 0-5 Normal 0-5 [facility] Comment on above: Performed By: #### 1 [id number] ####[address] [address] US 1st Trimesteron 01-19-2022 US 1st Trimester Exam Date/Time: 01/19/2022 13:22 EDT Reason for Exam: Ectopic Report IMPRESSION: No intrauterine gestation visualized. Findings concerning for left sided ectopic , given the appearance the provided clinical history, likely within the fallopian tube adjacent to the left ovary. Small volume free fluid, nonspecific. COMMUNICATION: Communicated with: Dr. Barlow on 01/19/2022 at 1411. FIRST TRIMESTER TRANSVAGINAL AND TRANSABDOMINAL PELVIC ULTRASOUND HISTORY: Ectopic . Lower abdominal pain. Left-sided pelvic pain. Vomiting. Light vaginal bleeding. Beta hCG of 1185. COMPARISON: None. TECHNIQUE: Sonography of the pelvis was performed by transabdominal and transvaginal techniques. Images were obtained and stored in a permanent archive. RESULT: Uterus: -Orientation: Anteverted - Size: 7.3 x 3.1 x 3.2 cm. - Myometrium: Homogeneous echotexture. Gestation/endometrium/ cervix: - Intrauterine gestational sac: Not seen -Endometrial echo complex/cervix: Endometrial echo complex measures 11 mm. Nabothian cyst. Right ovary: - 2.3 x 1.6 x 1.4 cm. - Normal sonographic appearance. Normal arterial and venous flow. Left ovary/adnexal region: Heterogeneous appearance of the left adnexal region with the left ovary appearing to measure 2.6 x 3.5 x 3.0 cm and an adjacent heterogeneous mass measuring up to 4.6 cm, suspicious for ectopic given the provided clinical history. No distinct associated gestational sac or embryo visualized. Normal arterial and venous flow to the left ovary. Report Pelvis free fluid: Small volume, nonspecific. FINAL REPORT Dictated: 01/19/2022 2:12 pm Haseeb Barnett MD Signed (Electronic Signature): 01/19/2022 2:12 pm Signed by: Haseeb Barnett MD Transcribed by: RICHA Technologist: JADE Technical Comments LMP : 12-11-21 [id number] Regular History 2 Para 1 Transabdominal Ultrasound Performed Transvaginal Ultrasound Performed Normal [facility] US Transvaginalon 01-19-2022 US Transvaginal Exam Date/Time: 01/19/2022 14:01 EDT Reason for Exam: Ectopic Report Refer to concurrent first trimester ultrasound dictation. FINAL REPORT Dictated: 01/19/2022 2:12 pm Haseeb Barnett MD. Signed (Electronic Signature): 01/19/2022 2:12 pm Signed by: Haseeb Barnett MD Transcribed by: RICHA Technologist: JADE Yin [facility] eGFRon 01-19-2022 GFR/1.73 sq M.predicted among blacks MDRD (S/P/Bld) [Vol rate/Area] mL/min/{1.73_m2} Normal >=59 [facility] Comment on above: Order Comment: Order added by Discern Expert. Result Comment: eGFR is race adjusted. AA=. Performed By: #### 2 [id number], [id number], [id number], [id number] ####[facility] [address] [place] [address] GFR/1.73 sq M.predicted among non-blacks MDRD (S/P/Bld) [Vol rate/Area] mL/min/{1.73_m2} Normal >=59 [facility] Comment on above: Order Comment: Order added by Discern Expert. Result Comment: Theatre Arts Professor alber kidney disease could be indicated at eGFR's of less than 60 mL/min/1.73m2. Kidney failure is indicated at less than 15 mL/min/1.73m2. Performed By: #### 2 [id number], [id number], [id number], [id number] ####[facility] [address] [place] [address] PAP ACOG PANEL 2: 21 to 29on 11-22-2021 . . [facility] Comment on above: Performed By: #### 4 [id number] #### [facility] [address] [place] [address] [address] Seven Vergara Age Gdln ACOG Testing - Normal [facility] Comment on above: Performed By: #### 4 [id number] #### [facility] [address] [place] [address] [address] Seven Vergara DIAGNOSIS: Comment Normal [facility] Comment on above: Result Comment: NEGA TIVE FOR INTRAEPITHELIAL LESION OR MALIGNANCY. Performed By: #### 4 [id number] #### [facility] [address] [place] [address] Dr. Seven Vergara Methodology: Comment [facility] Comment on above: Result Comment: This liquid based ThinPrep(R) pap test was screened with the use of an image guided system. Performed By: #### 4 [id number] #### [facility] [address] [place] [address] Dr. Seven Vergara Note: Comment Normal [facility] Comment on above: Result Comment: The Pap smear is a screening test designed to aid in the detection of premalignant and malignant conditions of the uterine cervix. It is not a diagnostic procedure and should not be used as the sole means of detecting cervical cancer. Both false-positive and false-negative reports do occur. . Performed By: #### 4 [id number] #### [facility] [address] [place] [address] Dr. Seven Vergara Performed by: Comment Normal [facility] Comment on above: Result Comment: Vel Alba, Machine Biller (ASCP) Performed By: #### 4 [id number] #### [facility] [address] [place] [address] Dr. Seven Vergara Reflex Criteria: Comment [facility] Comment on above: Result Comment: The HPV DNA reflex criteria were not met with this specimen result therefore, no HPV testing was performed. . Performed By: #### 4 [id number] #### [facility] [address] [place] [address] Dr. Seven Vergara Specimen adequacy: Comment Normal [facility] Comment on above: Result Comment: Sati sfactory for evaluation. Endocervical and/or squamous metaplastic cells (endocervical component) are present. Performed By: #### 4 [id number] #### [place] [address] Dr. Seven Vergara BASIC METABOLIC PANELon 10- Anion gap [Moles/Vol] 15 mmol/L Normal 0-19 [facility] Comment on above: Performed By: #### B MP #### [facility] [address] [place] [address] Calcium [Mass/Vol] 9.4 mg/dL Normal 8.5-10.4 [facility] Comment on above: Performed By: #### B MP #### [facility] [address] [address] Chloride [Moles/Vol] 101 mmol/L Normal 97-107 [facility] Comment on above: Performed By: #### B MP #### [facility] [address] [address] CO2 [Moles/Vol] 21 mmol/L Low 24-31 [facility] Comment on above: Performed By: #### B MP #### [facility] [address] [address] Creatinine [Mass/Vol] 0.8 mg/dL Normal 0.4-1.6 [facility] Comment on above: Performed By: #### B MP #### [address] [address] GFR/1.73 sq M.predicted MDRD (S/P/Bld) [Vol rate/Area] Normal [facility] Comment on above: Result Comment: 94 GFR ml/min/1.73m2 Stage ----- 90 1 60-89 2 30-59 3 15-29 4 <15 5 For -Americans, multiply EGFR result by 1.210 Calculation not validated for patients under 18 years of age. Performed at [address] [place] [address] Performed By: #### B MP #### [address] [address] Glucose [Mass/Vol] 86 mg/dL Normal 65-99 [facility] Comment on above: Performed By: #### B MP #### [facility] [address] [address] Potassium [Moles/Vol] 3.8 mmol/L Normal 3.4-5.1 [facility] Comment on above: Performed By: #### B MP #### [facility] [address] [address] Sodium [Moles/Vol] 137 mmol/L Normal 133-145 [facility] Comment on above: Performed By: #### B MP #### [facility] [address] [address] [place] [address] Urea nitrogen [Mass/Vol] 15 mg/dL Normal 8-25 [facility] Comment on above: Performed By: #### B MP #### [facility] [address] [address] [place] [address] Urea nitrogen/Creatinin e [Mass ratio] 18.8 RATIO Normal 8-21 [facility] Comment on above: Performed By: #### B MP #### [facility] [address] [address] [place] [address] CBC with Diffon 01-18-2019 AB IMMATURE NEUT 0.03 K/UL Normal 0.0-0.1 [facility] Comment on above: Performed By: #### C BCD #### [facility] [address] [address] [place] [address] ABS BASO 0.03 K/UL Normal 0.00-0.22 [facility] Comment on above: Performed By: #### C BCD #### [facility] [address] [address] [place] [address] ABS EOS 0.13 K/UL Normal 0-0.45 [facility] Comment on above: Performed By: #### C BCD #### [facility] [address] [address] [place] [address] ABS NEUTROPHILS 5.73 K/UL Normal 1.8-7.7 [facility] Comment on above: Performed By: #### C BCD #### [facility] [address] [address] [place] [address] ABS.NEUT.CALCULATE D Normal [facility] Comment on above: Result Comment: 5.73 Performed at [address] [address] Performed By: #### C BCD #### [facility] [address] [address] [place] [address] Basophils/100 WBC (Bld) 0.30 % Normal 0-1 [facility] Comment on above: Performed By: #### C BCD #### [facility] [address] [place] [address] DIFF TYPE AUTO DIFF Normal [facility] Comment on above: Performed By: #### C BCD #### [facility] [address] [place] [address] Eosinophils/100 WBC (Bld) 1.40 % Normal 0-3 [facility] Comment on above: Performed By: #### C BCD #### [place] [address] [place] [address] Erythrocyte distribution width (RBC) [Ratio] 13.1 % Normal 11.7-15.0 [facility] Comment on above: Performed By: #### C BCD #### [place] [address] [place] [address] Hematocrit (Bld) [Volume fraction] 38.2 % Normal 36-44 [facility] Comment on above: Performed By: #### C BCD #### [place] [address] [place] [address] Hemoglobin (Bld) [Mass/Vol] 12.4 g/dL Normal 12.0-15.0 [facility] Comment on above: Performed By: #### C BCD #### [place] [address] [place] [address] Lymphocytes (Bld) [#/Vol] 3.05 10*3/uL Normal 1.2-3.2 [facility] Comment on above: Performed By: #### C BCD #### [address] [place] [address] Lymphocytes/100 WBC (Bld) 31.70 % Normal 20-40 [facility] Comment on above: Performed By: #### C BCD #### [address] [address] [place] [address] MCH (RBC) [Entitic mass] 30.7 pg Normal 26-34 [facility] Comment on above: Performed By: #### C BCD #### [address] [address] [place] [address] MCHC (RBC) [Mass/Vol] 32.5 % Normal 31-37 [facility] Comment on above: Performed By: #### C BCD #### [facility] [address] [place] [address] MCV (RBC) [Entitic vol] 94.6 fL Normal 80-100 [facility] Comment on above: Performed By: #### C BCD #### [facility] [address] [address] [address] [place] [address] MEAN PLT VOL 10.7 CU Normal 7.0-12.6 [facility] Comment on above: Performed By: #### C BCD #### [facility] [address] [address] [place] [address] Monocytes (Bld) [#/Vol] 0.64 10*3/uL Normal 0-0.8 [facility] Comment on above: Performed By: #### C BCD #### [address] [place] [address] [facility] [facility] [place] [address] Monocytes/100 WBC (Bld) 6.70 % Normal 0-8 [facility] Comment on above: Performed By: #### C BCD #### [address] [address] [place] [address] Neutrophils/100 WBC (Bld) 0.30 % Normal 0.0-1.0 [facility] Comment on above: Performed By: #### C BCD #### [address] [address] [address] [place] [address] Neutrophils/100 WBC (Bld) 59.60 % Normal 50-70 [facility] Comment on above: Performed By: #### C BCD #### [facility] [address] [address] [facility] [place] [address] NRBC'S 0 /100 WBC Normal 0 [facility] Comment on above: Performed By: #### C BCD #### [facility] [address] [address] [place] [address] Platelets (Bld) [#/Vol] 225 10*3/uL Normal 150-450 [facility] Comment on above: Performed By: #### C BCD #### [facility] [address] [address] [place] [address] RBC (Bld) [#/Vol] 4.04 M/UL Normal 4.0-4.9 [facility] Comment on above: Performed By: #### C BCD #### [facility] [address] [address] RDW-SD 45.4 FL Normal 37.0-54.0 [facility] Comment on above: Performed By: #### C BCD #### [facility] [address] [address] WBC (Bld) [#/Vol] 9.6 10*3/uL Normal 4.5-11.0 [facility] Comment on above: Performed By: #### C BCD #### [facility] [address] [address] HCG QUALITATIVEon 01-18-2019 HCG QUALITATIVE Normal NEG [facility] Comment on above: Result Comment: NEGA TIVE Performed at [address] [address] Performed By: #### P REG #### [address] [address] CBC AND DIFFERENTIALon 12-05 % AUTOMATED IMMATURE GRAN 0.2 % Normal 0.0 - 0.9 [facility] Comment on above: Result Comment: Perc ent differential counts (%) should be interpreted in the context of the absolute cell counts (cells/L). Performed By: #### C BCDF #### [facility] [address] [place] [address] % NEUTROPHIL 72.7 % Normal 40.0 - 80.0 [facility] Comment on above: Performed By: #### C BCDF #### [facility] [address] [place] [address] Basophils/100 WBC (Bld) 0.1 % Normal 0.0 - 2.0 [facility] Comment on above: Performed By: #### C BCDF #### [facility] [address] [place] [address] Basophils/100 WBC (Bld) 0.01 x10E9/L Normal 0.00 - 0.10 [facility] Comment on above: Performed By: #### C BCDF #### [facility] [address] [place] [address] Eosinophils #/vol (Bld) 0.23 10*3/uL Normal 0.00 - 0.70 [facility] Comment on above: Performed By: #### C BCDF #### [facility] [address] [place] [address] Eosinophils/100 WBC (Bld) 2.4 % Normal 0.0 - 6.0 [facility] Comment on above: Performed By: #### C BCDF #### [facility] [address] [place] [address] Erythrocyte distribution width Ratio (RBC) 12.9 % Normal 11.5 - 14.5 [facility] Comment on above: Performed By: #### C BCDF #### [facility] [address] [place] [address] Hematocrit Volume Fraction (Bld) 38.1 % Normal 36.0 - 46.0 [facility] Comment on above: Performed By: #### C BCDF #### [facility] [address] [place] [address] Hemoglobin mass conc (Bld) 12.2 g/dL Normal 12.0 - 16.0 [facility] Comment on above: Performed By: #### C BCDF #### [facility] [address] [place] [address] Lymphocytes #/vol (Bld) 1.94 10*3/uL Normal 1.20 - 4.80 [facility] Comment on above: Performed By: #### C BCDF #### [facility] [address] [place] [address] Lymphocytes/100 WBC (Bld) 20.3 % Normal 13.0 - 44.0 [facility] Comment on above: Performed By: #### C BCDF #### [facility] [address] [place] [address] MCHC mass conc (RBC) 32.0 g/dL Normal 32.0 - 36.0 [facility] Comment on above: Performed By: #### C BCDF #### [facility] [address] [place] [address] MCV Entitic volume (RBC) 94 fL Normal 80 - 100 [facility] Comment on above: Performed By: #### C BCDF #### [facility] [address] [place] [address] Monocytes #/vol (Bld) 0.41 10*3/uL Normal 0.10 - 1.00 [facility] Comment on above: Performed By: #### C BCDF #### [facility] [address] [place] [id number] Monocytes/100 WBC (Bld) 4.3 % Normal 2.0 - 10.0 [facility] Comment on above: Performed By: #### C BCDF #### [facility] [address] [place] [id number] Neutrophils #/vol (Bld) 6.96 10*3/uL Normal 1.20 - 7.70 [facility] Comment on above: Performed By: #### C BCDF #### [facility] [address] [place] [id number] Platelets #/vol (Bld) 199 10*3/uL Normal 150 - 450 [facility] Comment on above: Performed By: #### C BCDF #### [facility] [address] [place] [address] RBC #/vol (Bld) 4.05 x10E12/L Normal 4.00 - 5.20 [facility] Comment on above: Performed By: #### C BCDF #### [facility] [address] [place] [address] WBC #/vol (Bld) 9.6 10*3/uL Normal 4.4 - 11.3 [facility] Comment on above: Performed By: #### C BCDF #### [facility] [address] [place] [address] COMPREHENSIVE PANELon 2017 Albumin mass conc 4.2 g/dL Normal 3.4 - 5.0 [facility] system Comment on above: Performed By: #### C MP #### [facility] [address] [place] [address] ALP enzyme act/vol 54 U/L Normal 33 - 110 [facility] Comment on above: Performed By: #### C MP #### [facility] [address] [place] [address] ALT enzyme act/vol 9 U/L Normal 7 - 45 [facility] Comment on above: Result Comment: Batool ents treated with Sulfasalazine may generate falsely decreased results for ALT. Performed By: #### C MP #### [facility] [address] [place] [address] Anion gap molar conc 12 mmol/L Normal 10 - 20 [facility] Comment on above: Performed By: #### C MP #### [facility] [address] [place] [address] AST enzyme act/vol 13 U/L Normal 9 - 39 [facility] Comment on above: Performed By: #### C MP #### [facility] [address] [place] [id number] Bilirubin mass conc 0.5 mg/dL Normal 0.0 - 1.2 [facility] Comment on above: Performed By: #### C MP #### [facility] [address] [place] [id number] Calcium mass conc 9.3 mg/dL Normal 8.6 - 10.3 Health system Comment on above: Performed By: #### C MP #### [facility] [address] [place] [id number] Chloride molar conc 106 mmol/L Normal 98 - 107 [facility] Comment on above: Performed By: #### C MP #### [facility] [address] [place] [id number] Creatinine mass conc 0.66 mg/dL Normal 0.50 - 1.05 [facility] Comment on above: Performed By: #### C MP #### [facility] [address] [place] [address] GFR- AM. >60 Normal >60 [facility] Comment on above: Result Comment: CALC ULATIONS OF ESTIMATED GFR ARE PERFORMED USING THE MDRD STUDY EQUATION FOR THE IDMS-TRACEABLE CREATININE METHODS. CLIN CHEM 2007;53:766-72 Performed By: #### C MP #### [facility] [address] [place] [id number] GFR-NON AM. >60 Normal >60 [facility] Comment on above: Performed By: #### C MP #### [facility] [address] [place] [id number] Glucose mass conc 104 mg/dL High 74 - 99 Health system Comment on above: Performed By: #### C MP #### [facility] [address] [place] [id number] HCO3 molar conc (Bld) 25 mmol/L Normal 21 - 32 [facility] Comment on above: Performed By: #### C MP #### [facility] [address] [place] [id number] Potassium molar conc 3.9 mmol/L Normal 3.5 - 5.3 [facility] Comment on above: Performed By: #### C MP #### [facility] [address] [place] [id number] Protein mass conc 7.2 g/dL Normal 6.4 - 8.2 Health system Comment on above: Performed By: #### C MP #### [facility] [address] [place] [id number] Sodium molar conc 139 mmol/L Normal 136 - 145 Health system Comment on above: Performed By: #### C MP #### [facility] [address] [place] [id number] Urea nitrogen mass conc 13 mg/dL Normal 6 - 23 [facility] Comment on above: Performed By: #### C MP #### [facility] [address] [place] [id number] ORBIT W CONTRASTon 2017 CT ORBIT W CONTRAST Patient Name: DACIA ZAIDI STUDY: CT ORBIT W CONTRAST; 12/05/2017 4:03 pm INDICATION: Signs/Symptoms: left eye swelling r/o postseptal cellulitis. COMPARISON: None. ACCESSION NUMBER(S): [id number] ORDERING CLINICIAN: TOAN ARTIS TECHNIQUE: Axial CT images of orbits with coronal and sagittal reconstruction images status post intravenous administration of 50 mL Optiray 320. FINDINGS: INTRACRANIAL STRUCTURES: Partially visualized intracranial structures show no acute abnormality. FACIAL BONES: No acute facial bone fracture. ORBITS: The bony orbits are intact. The globes, extraocular muscles and optic nerve sheath complexes are intact. No retrobulbar hematoma, postseptal inflammation, or abscess. SOFT TISSUES: There is preseptal soft tissue swelling about the left orbit.No abscess. PARANASAL SINUSES: No hemorrhage in the paranasal sinuses.The paranasal sinuses are clear. MASTOIDS: Within normal limits. OTHER FINDINGS: None. IMPRESSION: Left preseptal cellulitis without evidence of postseptal cellulitis. Electronically signed by: BOB CRAIN MD Normal [facility] HCG,BETA-QUANTITATIVEon HCG,BETA-QUANTITAT ANAIS <2 Normal [facility] Comment on above: Result Comment: Low- level positive HCG results can be seen in early , in kiki- or post-menopausal females due to normal pituitary HCG production, or with analytic interference. Repeat testing in 48-72 hours can aid in assessing for as results should double in this time period. FSH measurement is recommended in kiki- or post-menopausal females as concurrent elevation of FSH can support pituitary production as the source of the HCG elevation. . Total HCG measurement is performed using the Lionel Marc Access Immunoassay which detects intact HCG and free beta HCG subunit. This test is not indicated for use as a tumor marker. HCG testing is performed using a different test methodology at [facility] than other [facility]. Direct result comparison should only be made within the same method. REF VALUES NON FEMALE <5 MALES <5 Performed By: #### H QU #### [facility] [address] [place] [address] Provider Note - ED v2on Protein mass conc Provider Note - ED v 2: Chart Review: ED NOTES ED NOTES: HPI: Dacia Zaidi is a 22 year old female, denies any PMHx, presents to the ED with the chief complaint of left eye swelling. Patient states that she woke up yesterday morning around 05:00 AM when she noticed swelling around her upper and lower left eyelid. She claims that she was in [place], [place] on and came later that night to [place]. Reports additional symptoms of rash on left upper extremity. She was originally evaluated at [facility] who prescribed her Augmentin and she took since yesterday however this morning she woke up with worsening swelling and redness. Denies any fever, vision changes, or other pertinent symptoms at this time. He denies any fever or chills. Denies any vision loss. Denies any eye pain. She is not sure if his bit by an insect or not. REVIEW OF SYSTEMS: GENERAL.: No weight loss, fatigue, anorexia, insomnia, fever. EYES: No vision loss, double vision, drainage. +Left eye Swelling. ENT: No pharyngitis, dry mouth. CARDIOPULMONARY: No chest pain, palpitations, syncope, near syncope. No shortness of breath, cough, hemoptysis. GI: No abdominal pain, change in bowel habits, melena, hematemesis, hematochezia, nausea, vomiting, diarrhea. : No discharge, dysuria, frequency, urgency, hematuria. MS: No limb pain, joint pain, joint swelling. SKIN: +Rash on Left upper extremity. PSYCH: No depression, anxiety, suicidality, homicidality. Review of systems is otherwise negative unless stated above or in history of present illness. Social history, family history, allergies reviewed. PHYSICAL EXAM: GENERAL: Vitals noted, no distress. Alert and oriented x 3. Non-toxic. EENT: TMs clear. Posterior oropharynx unremarkable. No meningismus. No LAD. Swelling around Left upper and Left Lower Eyelid, mild edema around left eye with puffiness. No maxillary or Frontal Sinus tenderness. EOM'S intact. No Diplopia. Clear Drainage from lateral canthus. 2 papular areas over upper eyelids suspicious for insect bites. No pustules. NECK: Supple. Nontender. No midline tenderness. CARDIAC: Regular, rate, rhythm. No murmurs rubs or gallops. No JVD PULMONARY: Lungs clear bilaterally with good aeration. No wheezes rales or rhonchi. No respiratory distress. ABDOMEN: Soft, nonsurgical. Nontender. No peritoneal signs. Normoactive bowel sounds. No pulsatile masses. EXTREMITIES: No peripheral edema. Negative Homans bilaterally, no cords. SKIN: Area of Erythema and redness on Left upper extremity that measures 4 x 4 cm. Intact. NEURO: No focal neurologic deficits, NIH score of 0. Cranial nerves normal as tested from II through XII. MEDICAL DECISION MAKING: TREATMENT IN THE ED: Patient was given 50 mg of IV Benadryl in which her swelling and edema improved remarkably. ED COURSE: Patient was seen and evaluated today for left eye swelling. Orders were placed for CT Orbital and appropriate laboratory analysis. CT Orbital shows left preseptal cellulitis with no evidence for post septal cellulitis. CBC and Chemistry were unremarkable. Hard to differentiate inflammatory or infectious etiology of symptoms. Patient's swelling did improve with Benadryl and she did not have a fever in the ED along with no leukocytosis which favors inflammatory etiology. Advised patient hospitalization for antibiotics and antihistamines but she declined. She will be given Augmentin and Benadryl to continue taking for the next 12-24 hours. If there is no improvement and worsening symptoms advised to return to the ED. IMPRESSION: 1. Insect Bite 2. Allergic Reaction 3. Preseptal Cellulitis DISPOSITION: Patient was advised of results and is agreeable with plan to discharge home, in stable condition. They were instructed to followup with PCP. Patient received discharge instructions and return precautions. Verbalizes understanding. HISTORY OF PRESENTING ILLNESS DACIA was seen by me at 05-Dec-2017 14:04 for a chief complaint of facial swelling(1). Other complaints include: presents to ED with c/o worsening left facial/eye swelling. seen at urgent care yesterday, given by mouth antibiotics, woke today with worsening symptoms(1). Triage Information: Most recent Vital Sign Value Date Temp (F): 98 12-05-2017 14:00 Temp (C): 36.6 12-05-2017 14:00 Heart Rate (beats/min): 88 12-05-2017 14:00 Respirations (breaths/min): 18 12-05-2017 14:00 SpO2 (%): 99 12-05-2017 14:00 BP Systolic (mm Hg): 114 12-05-2017 14:00 BP Diastolic (mm Hg): 61 12-05-2017 14:00 PAST MEDICAL HISTORY ATTESTATION: I have reviewed and confirmed nurse's/medic's notes for patient's medications, allergies, medical history, and surgical history ALLERGIES/INTOLERANCES : No Known Allergies HEALTH HISTORY: No documented data. OUTPATIENT MEDICATIONS: Home Medications Review Status for Reconciliation: N/A Med Status: N/A No documented data. SIGNIFICANT EVENTS: No documented data. TETRYL DISSOLVER OPERATOR: Is : no(1) Is : no(1) RESULTS/VITAL SIGNS RESULTS: Recent Lab Results: I have reviewed these laboratory results: Complete Blood Count + Differential 05-Dec-2017 14:52:00 ResultValue White Blood Cell Count 9.6 Red Blood Cell Count 4.05 HGB 12.2 HCT 38.1 MCV 94 MCHC 32.0 PLT 199 RDW-CV 12.9 Neutrophil % 72.7 Immature Granulocytes % 0.2 Lymphocyte % 20.3 Monocyte % 4.3 Eosinophil % 2.4 Basophil % 0.1 Neutrophil Count 6.96 Lymphocyte Count 1.94 Monocyte Count 0.41 Eosinophil Count 0.23 Basophil Count 0.01 Comprehensive Metabolic Panel 05-Dec-2017 14:52:00 ResultValue Glucose, Serum 104 H NA 139 K 3.9 CL 106 Bicarbonate, Serum 25 Anion Gap, Serum 12 BUN 13 CREAT 0.66 GFR-Non >60 GFR- >60 Calcium, Serum 9.3 ALB 4.2 ALKP 54 T Pro 7.2 T Bili 0.5 Alanine Aminotransferase, Serum 9 Aspartate Transaminase, Serum 13 HCG, Beta Quantitative 05-Dec-2017 14:52:00 ResultValue HCG, Beta Quantitative <2 Radiology Results: Impression: Left preseptal cellulitis without evidence of postseptal cellulitis. CT Orbit w/wo Contrast [Dec 05 2017 4:18PM] Impression: CT Orbit w/wo Contrast [Dec 05 2017 2:42PM] VITAL SIGNS: T PRBP SpO2O2(LPM) %FiO2 Method 05-Dec-2017 14:00:[id number] 1 99 room air, no respiratory support CLINICAL IMPRESSION Diagnosis/Annotation: ED Dx Name:Insect bite Code:W57.XXXA Name:Allergic reaction Code:T78.40XA Name:Preseptal cellulitis Code:L03.213 Dispostion: discharged Condition on Disposition: stable ATTESTATION Comments/Additional Findings: Alfredo Ewing am scribing for and in the presence of Dr. Artsi All medical record entries made by the scribe were under my direction and personally dictated by me. I have reviewed the chart and agree that the record accurately reflects my performance of the history, physical, and assessment and plan. I have also personally directed, reviewed, and agree with the discharge instructions. CRITICAL CARE TIME Is this a critically ill patient?: no Electronic Signatures: VivgregoriotopherAlfredo (Scribe) (Entered 05-Dec-2017 14:36) Entered: Provider Note - ED v2 Toan Artis) (Signed 05-Dec-2017 21:12) Authored: Provider Note - ED v2 Last Updated: 05-Dec-2017 21:12 by Toan Artis) References: 1. Data Referenced From Triage - ED 12/05/2017 2:00 PM Normal [facility] Risk Screen - Adult Emergenc yon 12-05-2017 Risk Screen - Adult Emergency Preferred Language: Preferred Language: ? Preferred Language for Discussing Health Care (patient/designee)Engl solomon Advanced Directives: ? Advance Directive Medicalno Family Violence Adult: Abuse Screen: ? Are you or have you been threatened or abused physically, emotionally, or sexually by anyone?no Suicide / Depression: Suicide/Depression Screen: ? During the past month, have you often been bothered by feeling down, depressed or hopeless?no ? During the past month, have you often had little interest or pleasure in doing things?no ? Have you had any thoughts of harming yourself?no ? Have you had any thoughts of harming anyone else?no Learning Assessment (Patient): Learning Assessment (Patient): ? Patient is Able to be Assessed for Learningyes ? Factors Influencing Readiness to Learnacuteness of illness ? Factors that Impact Ability to Learnnone ? Devices/Methods Used to Communicatenone ? Learning Preferenceswritten material; skill demonstration ? Cultural Considerationsnone ? Developmental Considerationsnone ? Adventism Considerationsnone Learning Assessment (Other Learner): Learning Assessment (Other Learner): ? Other learner availableno Fall Risk Adult: Falls Risk: ? Altered Mobilitynone ? Change in Mental Statusno ? Relevant Medical History / Diagnosisnone ? Fall Historynone ? Altered Eliminationno ? Medications that Might Alter: equilibrium, cognitive judgement or severity of injurynone ? Sensory Deficitno ? UNABLE or UNWILLING to Follow Directionsno ? Patient Identified as a Falls Riskno ? Provide Rationale not identified as Falls Riskno risk factors identified Pressure Injury: Pressure Injury Present on Admissionno Respiratory / Cough /TB: ED / TB / Cough / Respiratory Screen: ? Do you have a cough?no Smoking/Social History (Required age 13 or older): Smoking Status: never smoker Admission Risk Screen: ? Significant IndicatorsComplete CAGE: CAGE: Is this an injured patient at a Trauma Center ([facility] / [facility]): no Electronic Signatures: Jane Salas (RN) (Signed 05-Dec-2017 15:07) Authored: Preferred Language, Advanced Directives, Family Violence Adult, Suicide / Depression, Learning Assessment (Patient), Learning Assessment (Other Learner), Fall Risk Adult, Pressure Injury, Respiratory / Cough /TB, Smoking/Social History (Required age 13 or older), CAGE Last Updated: 05-Dec-2017 15:07 by Jane Salas (RN) [facility] Triage - EDon 12-05-2017 Triage - ED Quick Triage: The patient and/or guardian verbally acknowledges placement for services into the following (when Urgent Care Service hours are operating):emergency department Are You no Are You Currently Breastfeedingno Pain: Pain Rating (0-10): Rest0 Pain Rating (0-10): Activity0 Chart Review: CHIEF COMPLAINT DACIA ZAIDI is a Female patient with a chief complaint of facial swelling. Other Complaints: presents to ED with c/o worsening left facial/eye swelling. seen at urgent care yesterday, given by mouth antibiotics, woke today with worsening symptoms Triage Date/Time: 05-Dec-2017 14:00 Pain Rating (0-10): Rest: 0 Pain Rating (0-10): Activity: 0 Vital Signs: Temperature: 98.0F ( 36.6C) taken temporal Blood Pressure: 114/61 Mean: Heart Rate: 88 Respiratory Rate: 18 Pulse Oximetry: 99% on room air, no respiratory support. Height: 5 feet 3.00 inches. 160.0 CM Weight: 127.0 pounds. Calculated 57.6 kg. (stated) Calculated BMI (kg/m2): 22.500 Calculated BSA (m2) 1.60 Cough lasting greater than 3 weeks: no Travel outside of [place]: no Allergies: no NITISH: 3 Symptoms Are Negative For: abrasion, bleeding, bruising, deformity, facial pain, jaw pain, numbness, slurred speech and vision changes. PAIN Pain Scale Used: ROSETTA ARRIVAL INFORMATION Means of Arrival: Ambulatory Mode of Arrival: private vehicle Arrival From: home PRIMARY ASSESSMENT DACIA ZAIDI's primary assessment is Within Normal Limits. The airway is open and patent. Breathing spontaneous and unlabored with clear breath sounds bilaterally. Circulation is normal with good peripheral pulses. Skin is warm and dry and color is normal for race. TRAVEL HISTORY Travel Exposure History: NO travel to International locations in the past 30 days Past Medical History: ? Past Medical History Reviewedno Electronic Signatures: Ivy Palacios (RN) (Signed 05-Dec-2017 14:02) Authored: Triage, Past Medical History Last Updated: 05-Dec-2017 14:02 by Ivy Palacios (RN) Normal [facility] Office Visit (Urgent Care)on 12-04-2017 Office Visit (Urgent Care) Chief Complaint Visit For: Other History of Present [id number] female presents with pain and swelling to the left eye since this morning. Patient states she was in [place] with her boyfriend for the past few days. This morning around 5 AM she woke up and rubbed her eyes and noticed that her left cheek and eye were swollen. She states area is mildly painful to touch and she notes some pain in the eye when looking downward. She denies any fevers, recent illnesses, exposure to insects, headache, dizziness, chest pain, shortness of breath, wheezing, swelling of the mouth, tongue, throat, nausea or vomiting. She has taken ibuprofen for her symptoms as well as an allergy pill. No known drug allergies. [facility] ROS otherwise negative unless noted. Social History Non-smoker (V49.89) (Z78.9) Allergies No Known Drug Allergies Recorded By: Radha Live; 12/04/2017 4:59:00 PM Vitals Vital Signs Recorded: [id number] 04:57SSKopxkuthikh76.5 FHeart Mcsy40Qpjzqkkrzml44Qak lrpci572Ecmmcasrr32O2 Mrstgwqnsz771HVJ13Ddu9 018Pain Scale3 Physical ExamCONSTITUTIONAL: Vital signs reviewed, No acute distress. EYES: PERRL, EOMI b/l. Left eye: Erythema and edema to left orbit extending into the left zygomatic region without peau d'orange. Some tenderness to palpation of zygomatic region. Sclera clear. Conjunctiva pink. No drainage. Right eye: normal examENT: Bilateral EACs patent. TMs pearly gutiérrez. No erythema, edema, or bulging. Nasal mucosa non-edematous. Turbinates non-edematous. Oral mucosa moist. Airway patent. Oropharynx without edema. No exudate. Uvula midline. No drooling or trismus. NECK: Supple. CARDIOVASCULAR: Rate and rhythm regular. Normal S1 and S2. No murmurs, rubs or gallops. Radial pulses 2+.RESPIRATORY: CTAB. Normal breath sounds. No crackles, wheezing, or rhonchi. INTEGUMENTARY: Normal color, turgor, and temperature. LYMPHATIC: No cervical lymphadenopathy.NEURO: Alert and oriented x 3. Gait was normal. Strength and sensation grossly intact. PSYCH: Normal mood and affect. Judgement and insight intact. Diagnoses/Problems Preseptal cellulitis of left eye (373.13) (L03.213) OrdersPreseptal cellulitis of left eye Start: Amoxicillin-Pot Clavulanate 875-125 MG Oral Tablet; TAKE 1 TABLET EVERY 12HOURS DAILY Rx By: Jena Lang; Dispense: 10 Days ; #:20 Tablet; Refill: 0;For: Preseptal cellulitis of left eye; SHAD = N; Verified Transmission to [facility] #[id number]; Last Updated By: ChatLingual; 12/04/2017 5:26:36 PM Patient Discussion/SummaryBegi n taking amoxicillin clavulanate.Take medications as prescribed. Take with food, yogurt, or a probiotic. Take the medication until it is gone. Watch for signs of worsening infection including swelling, excessive redness or pain, drainage of pus, area is warm to touch or fever. If any of these signs occur please go to the ER immediately. End of Encounter MedsAmoxicillin-Pot Clavulanate 875-125 MG Oral Tablet; TAKE 1 TABLET EVERY 12HOURS DAILY;Therapy: [id number] to (Evaluate:[id number]) Requested for: [id number]; LastRx:[id number] Ordered Signatures Electronically signed by : Jena Lang PA-C; Dec 04 2017 5:30PM EST (Author) Normal [facility] Vital Signs Date Time Vital Sign Value Performing Clinician Facility 06-16-2022 19:10-0400 Body height 160.02 cm Fernanda Kit Other [facility] Other 06-16-2022 19:10-0400 Body mass index (BMI) [Ratio] 23.03 kg/m2 Fernanda Pantoja Other [facility] Other 06-16-2022 19:10-0400 Body temperature 98.7 [degF] Fernanda Kit Other [facility] Other 06-16-2022 19:10-0400 Body weight 58.97 kg Fernanda Kit Other [facility] Other 06-16-2022 19:10-0400 Respiratory rate 18 /min Fernanda Kit Other [facility] Other 06-16-2022 19:10-0400 SaO2% (BldA) [Mass fraction] 98 % Fernanda Lingault Other [facility] Other Encounters Encounter Date Encounter Type Care Provider Facility Start: 06-16-2022 End: 06-16-2022 ambulatory Fernanda Kit Other [facility] Other Start: 06-16-2022 Office outpatient ne w 30 minutes Fernanda Pantoja [facility] Start: 02-14-[address] DOCTOR URRUTIA Facility : Start: 01-19-2022 End: 01-19-2022 Emergency department patient visit Jair ACOSTA [place] [place] Start: 11-18-2021 End: 11-18-[address] JAIR ACOSTA Facility: Start: 12-05-2017 Emergency dept visit high severity&threat funcj TOAN ARTIS [facility] Start: 12-05-2017 End: 12-05-2017 Patient encounter procedure TOAN ARTIS Facility:[facility] [place] Procedures Date Procedure Procedure Detail Performing Clinician Start: 12-05-2017 Ther proph/dx njx iv push single/1st sbst/drug TOAN ARTIS Payers Date Payer Category Payer Unknown [id number] 1995 Unknown [id number] 1995 Unknown [id number] [id number] [id number] 1995 Unknown [id number] [id number] 1960 Unknown [id number] Medicaid [id number] Medicaid [id number] 2.1 [id number] Social History Date Type Detail Facility Sex Assigned At [facility] Other Evaluation note 06-16-2022 Note Date & Type Note Facility 06-16-2022 Evaluation note Encounter Date Diagnosis Assessment Notes Jun, Sore throat (ICD-10 - J02.9) Jun, Allergic sinusitis (ICD-10 - J30.9) Take medication as directed. Use saline nasal spray may help with symptom relief. OTC medications such as Zyrtec, Moriah or Claritin can help with symptoms during the peak of allergy season. Follow up with primary care provider if symptoms persist as a therapy plan may need to be made. [facility] Other History and physical note 03-02-2022 Note Date & Type Note Facility 03-02-2022 Note HOSPITAL REGULATIONS : All Positive and Important Negative Findings Shall Be Recorded DATE ADMITTED: 01/19/2022 CHIEF COMPLAINT: Pelvic pain, positive test. HISTORY OF PRESENT ILLNESS: A 26-year-old patient presented to the Emergency Room with complaints of significant pelvic pain. States has increased in intensity over the last day or so. The patient states that she found out she is several months ago. A hCG level was confirmed today in the Emergency Room along with an ultrasound which stated possible ectopic . Due to the patient's increase in pelvic pain, positive hCG and possible ectopic , at that time it was decided to take the patient to the Operating Room for removal of suspected ectopic . All options including methotrexate were given with patient but in light of the findings, the patient decided to electively go for the surgery. PAST MEDICAL HISTORY: Please see chart. PSYCHOSOCIAL HISTORY: Denies substance abuse or alcohol abuse. The patient states she is a nonsmoker. PAST SURGICAL HISTORY: None except for wisdom teeth. ALLERGIES: No known drug allergies. REVIEW OF SYSTEMS: Unless stated above review of systems is negative. PHYSICAL EXAMINATION: HEART: Regular rate and rhythm. LUNGS: Clear to auscultation. ABDOMEN: Rebound tenderness plus guarding. Bowel sounds were able to be auscultated. EXTREMITIES: No clubbing, cyanosis or edema. ASSESSMENT AND PLAN: 1. Ectopic . 2. Pelvic pain. Consent obtained, alternatives given. Morbidity, mortality and complications reviewed with patient. Consent signed. Will proceed to the Operating Room. Ronald Angela Dictated: 01/26/2022 [id number] Transcribed: 01/27/2022 [facility] Comment on above: Result Comment: Elec tronically Signed By: Jair ACOSTA DO\.br\Date and Time Signed: 03/02/22 16:01 EST History general Narrative - Reported Note Date & Type Note Facility History general Narrative - Reported Type Surgical History tubular 2021 [facility] Other Summary Purpose Family History No Family History Records FoundNo Family History Records FoundNo Family History Records FoundNo Family History Records FoundNo Family History Records Found Advance Directives No Advanced Directives Records FoundNo Advanced Directives Records FoundNo Advanced Directives Records FoundNo Advanced Directives Records FoundNo Advanced Directives Records Found Additional Source Comments INFORMATION SOURCE (unrecogn ized section and content) DATE CREATED AUTHOR 12/09/2017 [employer] DATE CREATED AUTHOR AUTHOR'S ORGANIZ ATION 05/06/2018 [facility] DATE CREATED AUTHOR AUTHOR'S ORGANIZ ATION 01/24/2019 [facility] DATE CREATED AUTHOR AUTHOR'S ORGANIZ ATION 02/07/2022 [facility] DATE CREATED AUTHOR AUTHOR'S ORGANIZ ATION 03/03/2022 [facility] REASON FOR VISIT (unrecogniz ed section and content) Sore throat FOR RECORDS PERTAINING TO PATIENTS WHO ARE OR HAVE BEEN ENROLLED IN A CHEMICAL DEPENDENCY/SUBSTANCEABUSE PROGRAM, SOME INFORMATION MAY BE OMITTED. This clinical summary was aggregated from multiple sources. Caution should be exercised in using it in the provision of clinical care. This summary normalizes information from multiple sources, and as a consequence, information in this document may materially change the coding, format and clinical context of patient data. In addition, data may be omitted in some cases. CLINICAL DECISIONS SHOULD BE BASED ON THE PRIMARY CLINICAL RECORDS. [employer] provides no warranty or guarantee of the accuracy or completeness of information in this document.
--- NOTE | 2023-06-17 17:38 | ED_ITS ---
HPI - Abdominal Pain General Chief Complaint: Abdominal Pain Stated Complaint: ABD PAIN Time Seen by Provider: 06/17/23 17:24 History of Present Illness HPI narrative: 28 year old female presents to the ED for generalized abd pain. Onset was one week ago. Denies fever, chills, injury, N/V/D, urinary sx. The pain is worse at night. Also reports intermittent breast soreness. States her LNMP was 05/23/23, but only lasted 2 days. Reports an ectopic 2-3 years ago. Related Data Allergies Allergy/AdvReac Type Severity Reaction Status Date / Time No Known Drug Allergies Allergy Verified 06/17/23 17:13 Review of Systems ROS Constitutional Denies: fever, chills or fatigue Ears, nose, mouth, and throat Denies: throat pain or neck pain Cardiovascular Denies: chest pain Respiratory Denies: shortness of breath or cough Gastrointestinal Reports: abdominal pain; Denies: nausea, vomiting or diarrhea Genitourinary Denies: painful urination, urinary frequency, urinary urgency or blood in urine Musculoskeletal Denies: back pain or neck pain Integumentary/Breast Denies: rash, itching or redness PFSH PFSH Social History Smoking status: Never smoker Exam Constitutional Vital Signs, click to edit/add: Last Vital Signs Temp 98.2 F 06/17/23 17:08 Pulse 74 06/17/23 17:08 Resp 18 06/17/23 17:08 BP 141/85 06/17/23 17:08 Pulse Ox 97 06/17/23 17:08 O2 Del Method Room Air 06/17/23 17:08 Common normals: no apparent distress General appearance: cooperative HENMT Mouth: oral and palatal mucosa normal and lip normal Eye Common normals: conjunctivae normal and no scleral icterus Neck & C-Spine Common normals: supple Chest Chest: symmetrical chest wall rise Respiratory Common normals: normal respiratory effort and no use of accessory muscles Effort & inspection: able to speak in complete sentences Cardio Common normals: regular rate and regular rhythm GI Common normals: Normal to inspection, nondistended, normoactive bowel sounds present, soft to palpation and non-tender Neuro Common normals: oriented x3 Sensorium/orientation: awake and alert Speech: speech normal Course Vital Signs Vital signs: Vital Signs Temperature 98.2 F 06/17/23 17:08 Pulse Rate 74 06/17/23 17:08 Respiratory Rate 18 06/17/23 17:08 Blood Pressure 141/85 06/17/23 17:08 Pulse Oximetry 97 06/17/23 17:08 Oxygen Delivery Method Room Air 06/17/23 17:08 Temperature 98.2 F 06/17/23 17:08 Pulse Rate 74 06/17/23 17:08 Respiratory Rate 18 06/17/23 17:08 Blood Pressure 141/85 06/17/23 17:08 Pulse Oximetry 97 06/17/23 17:08 Oxygen Delivery Method Room Air 06/17/23 17:08 MDM - Abdominal Pain MDM Narrative Medical decision making narrative: Urine was negative. CBC, CMP, lipase, urinalysis were unremarkable. CT scan was negative for acute findings. Findings were discussed with the patient. Follow up with pcp for a recheck, further evaluation and treatment. Differential Diagnosis Differential diagnosis: Likely abdominal pain, constipation, diverticulitis, gastroenteritis and small bowel obstruction Medical Records Attestation: I reviewed the patient's medical records. Lab Data Attestation: I reviewed the patient's lab results. Labs: Lab Results 06/17/23 06/17/23 Range/Units 17:20 17:40 WBC 10.0 (4.0-11.0) 10^3/uL RBC 3.99 L (4.20-5.40) 10^6/uL Hgb 12.0 (12.0-16.0) g/dL Hct 37.2 (36.0-48.0) % MCV 93.2 (81.0-99.0) fL MCH 30.1 (26.7-34.0) pg MCHC 32.3 (29.9-35.2) g/dL RDW 12.3 (11.0-15.0) % Plt Count 199 (150-450) 10^3/uL MPV 11.0 (9.5-13.5) fL Neut % (Auto) 67.2 (43.0-75.0) % Lymph % (Auto) 26.2 (20.5-60.0) % Crockett % (Auto) 4.7 (1.7-12.0) % Eos % (Auto) 1.4 (0.9-7.0) % Baso % (Auto) 0.3 (0.2-2.0) % Neut # (Auto) 6.7 H (1.4-6.5) 10^3/uL Lymph # (Auto) 2.6 (1.2-3.8) 10^3/uL Crockett # (Auto) 0.5 (0.3-0.8) 10^3/uL Eos # (Auto) 0.1 (0.0-0.7) 10^3/uL Baso # (Auto) 0.0 (0.0-0.1) 10^3/uL Abs Immat Gran (auto) 0.02 (0.00-0.03) 10^3/uL Imm/Tot Granulo (auto) 0.2 (0.0-0.5) % Sodium 140 (136-145) mmol/L Potassium 3.7 (3.5-5.1) mmol/L Chloride 102 (98-107) mmol/L Carbon Dioxide 25.3 (21.0-32.0) mmol/L Anion Gap 16.4 BUN 10.0 (7.0-18.0) mg/dL Creatinine 0.73 (0.55-1.02) mg/dL Est GFR ( Amer) >60 (>=60) Est GFR (Non-Af Amer) >60 (>=60) BUN/Creatinine Ratio 13.7 Glucose 91 (74-106) mg/dL Calcium 9.2 (8.5-10.1) mg/dL Total Bilirubin 0.4 (0.2-1.0) mg/dL AST 16 (15-37) U/L ALT 19 (14-59) U/L Alkaline Phosphatase 77 (46-116) U/L Total Protein 8.0 (6.4-8.2) g/dL Albumin 4.4 (3.4-5.0) g/dL Globulin 3.6 g/dL Albumin/Globulin Ratio 1.2 Lipase 35.0 (16.0-77.0) U/L Urine Color Lt. yellow (YELLOW) Urine Clarity Clear (CLEAR) Urine pH 6.0 (5.0-9.0) Ur Specific Anderson 1.010 (1.005-1.025) Urine Protein Negative (NEG/TRACE) mg/dL Urine Glucose (UA) Negative (NEGATIVE) mg/dL Urine Ketones Negative (NEGATIVE) mg/dL Urine Occult Blood Trace-i (NEGATIVE) Urine Nitrite Negative (NEGATIVE) Urine Bilirubin Negative (NEGATIVE) Urine Urobilinogen 0.2 (0.2-1.0) EU/dL Ur Leukocyte Esterase Negative (NEGATIVE) Urine RBC 0-2 (0-2) #/HPF Urine WBC None seen (NONE SEEN) #/HPF Ur Squamous Epith Cells Rare (NONE/RARE) #/LPF Urine Crystals None seen (None Seen) #/HPF Urine Bacteria Trace A (NONE SEEN) #/HPF Urine Casts None seen (NONE SEEN) #/LPF Urine Mucus None seen (NONE SEEN) Ur Culture Indicated? No Urine HCG, Qual Negative (NEGATIVE) Imaging Data CT scan - abdomen: Radiologist's impression: ITS Impressions Abdomen/Pelvis CT 06/17/23 18:48 IMPRESSION: No acute abdominal or pelvic pathology. Electronically authenticated by: VELIA MCKENNA Date: 06/17/2023 19:57 Discharge Plan Discharge Stand Alone Forms: Portal Instructions Chief Complaint: Abdominal Pain Clinical Impression: Abdominal pain Patient Disposition: Home, Self-Care Time of Disposition Decision: 20:02 Condition: Good Mode of Transportation: Private Vehicle Instructions: Abdominal Pain (ED) Additional Instructions: Return to the ER if your condition worsens. Referrals: Physician,Non-Staff, MD [Primary Care Provider] - 1 week Discharge Date/Time: 06/17/23 20:16
[2023-06-17 17:39] LABS: Bilirubin Urine NEGATIVE (NEGATIVE); Blood Urine TRACE-I (NEGATIVE); Clarity Urine CLEAR (CLEAR); Color Urine LT. YELLOW (YELLOW); Glucose Urine UA NEGATIVE (NEGATIVE); Ketones Urine NEGATIVE (NEGATIVE); Leukocyte Esterase Urine NEGATIVE (NEGATIVE); Nitrite Urine NEGATIVE (NEGATIVE); Protein Urine NEGATIVE (NEG/TRACE); Urobilinogen Urine 0.2 EU/dL (0.2-1.0)
[2023-06-17 17:41] LABS: HCG Qualitative Urine* NEGATIVE (NEGATIVE); Urine Microscopic Indicated YES
[2023-06-17 17:52] LABS: Bacteria Urine TRACE #/HPF (NONE SEEN); Cast Seen? NONE SEEN #/LPF (NONE SEEN); Crystals Seen? None Seen #/HPF (None Seen); Mucus Urine NONE SEEN (NONE SEEN); RBC Urine 0-2 #/HPF (0-2); Squamous Epithelial Cell Urine RARE #/LPF (NONE/RARE); Urine Culture Indicated NO; WBC Urine NONE SEEN #/HPF (NONE SEEN)
[2023-06-17 18:00] LABS: Basophils Percent Auto 0.3 % (0.2-2.0); Eosinophils Absolute Auto 0.1 10^3/uL (0.0-0.7); Eosinophils Percent Auto 1.4 % (0.9-7.0); Hematocrit 37.2 % (36.0-48.0); Immature Granulocytes Abs Auto 0.02 10^3/uL (0.00-0.03); Immature Granulocytes Pct Auto 0.2 % (0.0-0.5); Lymphocytes Absolute Auto 2.6 10^3/uL (1.2-3.8); Lymphocytes Percent Auto 26.2 % (20.5-60.0); Mean Corpuscular HGB Conc 32.3 g/dL (29.9-35.2); Mean Corpuscular Hemoglobin 30.1 pg (26.7-34.0); Mean Corpuscular Volume 93.2 fL (81.0-99.0); Monocytes Absolute Auto 0.5 10^3/uL (0.3-0.8); Monocytes Percent Auto 4.7 % (1.7-12.0); Neutrophils Absolute Auto 6.7 10^3/uL (1.4-6.5); Neutrophils Percent Auto 67.2 % (43.0-75.0); Platelet Count 199 10^3/uL (150-450); Red Blood Count 3.99 10^6/uL (4.20-5.40); Red Cell Distribution Width 12.3 % (11.0-15.0)
[2023-06-17 18:13] LABS: Alanine Aminotransferase 19 U/L (14-59); Albumin Globulin Ratio 1.2; Albumin Level 4.4 g/dL (3.4-5.0); Alkaline Phosphatase 77 U/L (46-116); Anion Gap 16.4; Aspartate Amino Transferase 16 U/L (15-37); BUN Creatinine Ratio 13.7; Bilirubin Total 0.4 mg/dL (0.2-1.0); Calcium 9.2 mg/dL (8.5-10.1); Carbon Dioxide 25.3 mmol/L (21.0-32.0); Chloride 102 mmol/L (98-107); Estimated GFR (African America >60 (>=60); Estimated GFR (Non-African Ame >60 (>=60); Globulin 3.6 g/dL; Glucose 91 mg/dL (74-106); Potassium 3.7 mmol/L (3.5-5.1); Sodium 140 mmol/L (136-145)
--- NOTE | 2023-06-17 18:48 | CT_ITS ---
[facility] [place] [id number] Patient Name: RON RIZZO MRN: [facility]:[id number] date: 1995 Sex: F Assigned Patient Location: ER Current Patient Location: ER Accession/Order Number: [id number] Exam Date: 06/17/2023 18:40 Report Date: 06/17/2023 19:57 At the request of: HALLIE MURPHY Procedure: CT abdomen pelvis w con EXAM: CT abdomen pelvis w con HISTORY: pain COMPARISON: None. TECHNIQUE: CT abdomen pelvis with IV contrast. Axial scans with reformatted coronal and sagittal images. Individualized dose reduction used for this exam including automated exposure control. FINDINGS: Lung bases clear, lower chest unremarkable. ABDOMEN: Normal enhancement liver, pancreas spleen without focal lesion. Normal fluid-filled gallbladder. Normal adrenal glands. No ascites or free fluid. No adenopathy. No bowel distention wall thickening or edema. Elongated but normal diameter appendix retrocecal area right lower quadrant without surrounding fluid or inflammation. Moderate to large amount of gas and stool throughout colon. Normal size enhancement aorta, IVC and other arterial and venous structures. Normal symmetric enhancement in the kidneys, no mass or hydronephrosis. Normal ureters. No pelvic mass or adenopathy or free fluid. No uterine or adnexal abnormality. Small amount of fluid in the bladder. No bony abnormality other than scoliosis. No focal bone lesion. No inguinal mass or adenopathy or hernia. Protuberant ventral abdominal wall between the rectus muscles without abdominal wall hernia. CT/CT abdomen pelvis w con IMPRESSION: No acute abdominal or pelvic pathology. Electronically authenticated by: VELIA MCKENNA Date: 06/17/2023 19:57
== END 2023-06-17 20:16 | disposition home or self-care (01) ==
PROVIDERS: Nurse Practitioner Family; Emergency Provider Emergency Medicine
DX: R10.9 Unspecified abdominal pain (principal)
CPT/HCPCS: 36415; 74177; 80053; 81001; 83690; 84703; 85025; 99285; Q9967

== ENCOUNTER 2024-08-01 21:14 | Outpatient (REF) | payer MEDICAID, SELFPAY ==
[2024-08-04 10:08] LABS: Age Gdln ACOG Testing Note (.); HPV Aptima Negative (Negative); IGP, Aptima HPV, rfx 16/18,45 Note (.)
== END 2024-08-01 21:15 | disposition home or self-care (01) ==
LOC: LAB 21:14
PROVIDERS: Visit Provider Nurse Practitioner Family
DX: Z01.419 Encounter for gynecological examination (general) (routine) without abnormal findings (principal)
CPT/HCPCS: 87624; 88175